=== PATIENT | female | born 1955 | race Caucasian/White ===

== ENCOUNTER 2023-05-20 20:15 | Inpatient (IN) | payer MEDICARE, MEDICAID, SELFPAY ==
[2023-05-20] VITALS (24 sets, daily range): BP systolic 190–210; BP diastolic 96–118; PULSE 100–119; RESP 12–30; O2SAT 93–100; BMI 26.6
--- NOTE | 2023-05-20 20:18 | XR_ITS ---
The [address] [address] Patient Name: LANDY GODFREY MRN: [id number] date: 1955 Sex: F Assigned Patient Location: ED.MAIN Current Patient Location: ED.MAIN Accession/Order Number: [id number] Exam Date: 05/20/2023 20:42 Report Date: 05/20/2023 21:27 At the request of: ALENA CHAPPELL Procedure: XR chest 1V EXAM: XR chest 1V HISTORY: shortness of breath COMPARISON: None. TECHNIQUE: Single view of the chest FINDINGS: Heart size normal. No focal consolidation, pleural effusion, pulmonary congestion or pneumothorax. XR/XR chest 1V IMPRESSION: No acute findings. Electronically authenticated by: DAVID ARMENDARIZ Date: 05/20/2023 21:27
--- NOTE | 2023-05-20 20:18 | ECG_ITS ---
The [facility] Test Date: 2023-05-20 Pat Name: LANDY GODFREY Department: Room: - Gender: Female [employer]ice: : 1955 Requested By: [id number] Order Number: [id number] Reading MD: DARCI RENDON Measurements Intervals [place] Rate: 114 P: 86 IN: 136 QRS: 80 QRSD: 80 T: -11 QT: 312 QTc: 379 Interpretive Statements 1120 Sinus tachycardia [address] depression 4664 Twave abnormality, possible inferior ischemia 6120 Possible right atrial enlargement 9150 abnormal ECG No previous ECG available for comparison Electronically Signed On 05-20-2023 22:33:49 EST by DARCI RENDON
[2023-05-20] MEDS: IPRATROPIUM/ALBUTEROL SULFATE 3 ML AMPUL.NEB 6 ML IH (20:25)
[2023-05-20] MEDS: LORAZEPAM 2 MG/ML 1 ML VIAL 1 MG IV (20:25)
[2023-05-20 20:36] LABS: Base Excess ABG 5.3 mmol/L (-2.0-2.0); HCO3 ABG 31.1 mmol/L (22.0-26.0); pH ABG 7.337 (7.350-7.450)
[2023-05-20 20:37] LABS: Allen Test POSITIVE (POSITIVE); BIPAP Pressure 14/7; Fractionated Inspired Oxygen 70 %; O2 Mode BIPAP; Oxygen Saturation ABG >100.0 %; Puncture Site R RADIAL; Rate 12
[2023-05-20 20:38] LABS: ABG PCO2 58.1 mmHg (35.0-45.0)
[2023-05-20] MEDS: MAGNESIUM SULFATE IN WATER 2 GM/50 ML PREMIX IV (20:38)
--- NOTE | 2023-05-20 20:43 | ED_ITS ---
HPI - SOB/Dyspnea General Chief Complaint: Shortness of Breath/Dyspnea Stated Complaint: copd Time Seen by Provider: 05/20/23 20:18 Source: patient Mode of arrival: ambulance Limitations: no limitations History of Present Illness HPI Narrative: 68-year-old female to the emergency department with chief complaint of shortness of breath. Patient reports a history of chronic obstructive pulmonary disease. She has not seen a doctor in a very long time however. Patient reports that over the last three days she has had increasing shortness of breath. She denies any chest pain. She reports chills and a cough. She denies any lower extremity swelling. She reports a remote history of heart attack. She denies any medications. Related Data Home Medications Medication Instructions Recorded Confirmed No Known Home Medications 05/20/23 05/20/23 Allergies Allergy/AdvReac Type Severity Reaction Status Date / Time Penicillins Allergy Unknown Verified 05/20/23 20:28 Review of Systems ROS Status of ROS 10 or more systems reviewed and unremark able except as noted in history and below [facility] Medical History (Updated 05/21/23 @ 01:17 by Estevan Phoenix MD) COPD (chronic obstructive pulmonary disease) ?J44.9 - Chronic obstructive pulmonary disease, unspecified (ICD-10) Social History Smoking status: Former smoker Exam Narrative Exam Narrative: VITALS: I have reviewed the triage vital signs. GENERAL: Disheveled adult female in Respiratory distress NEURO: Alert and oriented. Moves all extremities. Face is symmetric and expressive. EYES: PERRL. No scleral icterus or conjunctival injection. No discharge. HENT: Normocephalic, atraumatic. Hearing is grossly intact. Nares grossly patent and without discharge. Mucous membranes moist. NECK: No JVD. Patient moves neck without restriction. CARDIO: Rhythm regular. Normal rate. No murmur, rub, or gallop. Pulses equal bilaterally in the upper and lower extremity. No lower extremity edema. PULM: Trace wheezes. Diminished lung sounds. Severe increased work of breathing. Severe conversational dyspnea. GI/: Abdomen is soft and non-tender. Normoactive bowel sounds. EXTREMITIES: Symmetric muscle bulk. No joint swelling. No clubbing, cyanosis, or deformity. SKIN: Warm and dry. Normal turgor. No rash or lesions appreciated. PSYCH: Anxious Constitutional Vital Signs, click to edit/add: Last Vital Signs Pulse 103 H 05/20/23 23:10 Resp 24 05/20/23 21:49 BP 190/96 H 05/20/23 21:49 Pulse Ox 100 05/20/23 23:10 O2 Del Method BIPAP 05/20/23 21:49 O2 Flow Rate 5 05/20/23 20:17 FiO2 70 05/20/23 20:51 Course Vital Signs Vital signs: Vital Signs Pulse Rate 119 H 05/20/23 20:17 Respiratory Rate 20 05/20/23 20:17 Blood Pressure 210/118 H 05/20/23 20:17 Pulse Oximetry 93 L 05/20/23 20:17 Oxygen Delivery Method Nasal Cannula 05/20/23 20:17 Oxygen Delivery Flow Rate 5 05/20/23 20:17 Pulse Rate 103 H 05/20/23 23:10 Respiratory Rate 05/20/23 21:49 Blood Pressure 190/96 H 05/20/23 21:49 Pulse Oximetry 100 05/20/23 23:10 Oxygen Delivery Method BIPAP 05/20/23 21:49 Oxygen Delivery Flow Rate 05/20/23 20:17 Fraction of Inspired Oxygen 70 05/20/23 20:51 MDM - SOB/Dyspnea MDM Narrative Medical decision making narrative: 68-year-old female to the emergency department in significant respiratory distress via EMS. Hypertensive And sick. Otherwise stable vitals. The patient is afebrile.She is immediately placed on BiPAP upon arrival for increased work of breathing. ABG to be obtained. We'll obtain cardiac workup, chest x-ray, blood cultures and lactate. POCUS was performed at the bedside. No significant B lines to suggest pulmonary edema. She received sign Medrol in route. Additional breathing treatments were given. Magnesium is given. Laboratory chest x-ray reviewed. She does have a significant PCO2. EKG without evidence of ischemia, No arrhythmia, normal QTC. Patient remains on BiPAP. Titrated to Fifty percent FiO2. Patient will need admission for acute hypoxemic respiratory failure in setting of chronic obstructive pulmonary disease exacerbation. Patient agrees with this plan. Case discussed with hospitalist who agrees to admit the patient to the [facility]. Medical Records Attestation: I reviewed the patient's medical records. Lab Data Attestation: I reviewed the patient's lab results. Labs: Lab Results 05/20/23 05/20/23 05/20/23 Range/Units 20:22 20:33 20:57 WBC 13.6 H (4.0-11.0) 10^3/uL RBC 4.71 (4.20-5.40) 10^6/uL Hgb 13.6 (12.0-16.0) g/dL Hct 43.4 (36.0-48.0) % MCV 92.1 (81.0-99.0) fL MCH 28.9 (26.7-34.0) pg MCHC 31.3 (29.9-35.2) g/dL RDW 13.5 (11.0-15.0) % Plt Count 308 (150-450) 10^3/uL MPV 11.2 (9.5-13.5) fL Neut % (Auto) 82.4 H (43.0-75.0) % Lymph % (Auto) 12.1 L (20.5-60.0) % [place] % (Auto) 4.4 (1.7-12.0) % Eos % (Auto) 0.4 L (0.9-7.0) % Baso % (Auto) 0.3 (0.2-2.0) % Neut # (Auto) 11.2 H (1.4-6.5) 10^3/uL Lymph # (Auto) 1.6 (1.2-3.8) 10^3/uL [place] # (Auto) 0.6 (0.3-0.8) 10^3/uL Eos # (Auto) 0.1 (0.0-0.7) 10^3/uL Baso # (Auto) 0.0 (0.0-0.1) 10^3/uL Abs Immat Gran (auto) 0.05 H (0.00-0.03) 10^3/uL Imm/Tot Granulo (auto) 0.4 (0.0-0.5) % PT 10.3 (9.0-11.6) sec INR 0.97 APTT 25.9 (22.3-36.2) sec Puncture Site R radial ABG pH 7.337 L (7.350-7.450) ABG pCO2 58.1 H* (35.0-45.0) mmHg ABG pO2 319.0 H (80.0-100.0) mmHg ABG HCO3 31.1 H (22.0-26.0) mmol/L ABG O2 Saturation >100.0 % ABG Base Excess 5.3 H (-2.0-2.0) mmol/L Royal Test Positive (POSITIVE) FiO2 70 % BiPAP 14/7 Sodium 135 L (136-145) mmol/L Potassium 4.4 (3.5-5.1) mmol/L Chloride 100 (98-107) mmol/L Carbon Dioxide 29.7 (21.0-32.0) mmol/L Anion Gap 9.7 BUN 14.0 (7.0-18.0) mg/dL Creatinine 0.76 (0.55-1.02) mg/dL Est GFR ( Amer) >60 (>=60) Est GFR (Non-Af Amer) >60 (>=60) BUN/Creatinine Ratio 18.4 Glucose 148 H (74-106) mg/dL Lactate 0.5 (0.4-2.0) mmol/L Calcium 9.3 (8.5-10.1) mg/dL Troponin I High Sens 37.2 (4.0-51.3) pg/mL NT-Pro-B Natriuret Pep 751.0 (<=900.0) pg/mL Adenovirus (PCR) (NOT DETECTE) C. pneumoniae DNA (PCR) (NOT DETECTE) Coronavirus Type OC43 (NOT DETECTE) Coronavirus Type HKU1 (NOT DETECTE) Coronavirus Type 229E (NOT DETECTE) Coronavirus Type NL63 (NOT DETECTE) Human Metapneumovir PCR (NOT DETECTE) M. pneumoniae (PCR) (NOT DETECTE) Parainfluenza PCR (NOT DETECTE) Parainfluenza 2 (PCR) (NOT DETECTE) Parainfluenza 3 (PCR) (NOT DETECTE) Parainfluenza 4 (PCR) (NOT DETECTE) RSV (RT-PCR) (NOT DETECTE) Entero/Rhino (PCR) (NOT DETECTE) SARS-CoV-2 (PCR) (NOT DETECTE) Bordetella pertussis (PCR) (NOT DETECTE) B parapertussis DNA PCR (NOT DETECTE) Influenza Type A (PCR) (NOT DETECTE) Influenza Type B (PCR) (NOT DETECTE) 05/20/23 Range/Units 22:18 WBC (4.0-11.0) 10^3/uL RBC (4.20-5.40) 10^6/uL Hgb (12.0-16.0) g/dL Hct (36.0-48.0) % MCV (81.0-99.0) fL MCH (26.7-34.0) pg MCHC (29.9-35.2) g/dL RDW (11.0-15.0) % Plt Count (150-450) 10^3/uL MPV (9.5-13.5) fL Neut % (Auto) (43.0-75.0) % Lymph % (Auto) (20.5-60.0) % [place] % (Auto) (1.7-12.0) % Eos % (Auto) (0.9-7.0) % Baso % (Auto) (0.2-2.0) % Neut # (Auto) (1.4-6.5) 10^3/uL Lymph # (Auto) (1.2-3.8) 10^3/uL [place] # (Auto) (0.3-0.8) 10^3/uL Eos # (Auto) (0.0-0.7) 10^3/uL Baso # (Auto) (0.0-0.1) 10^3/uL Abs Immat Gran (auto) (0.00-0.03) 10^3/uL Imm/Tot Granulo (auto) (0.0-0.5) % PT (9.0-11.6) sec INR APTT (22.3-36.2) sec Puncture Site ABG pH (7.350-7.450) ABG pCO2 (35.0-45.0) mmHg ABG pO2 (80.0-100.0) mmHg ABG HCO3 (22.0-26.0) mmol/L ABG O2 Saturation % ABG Base Excess (-2.0-2.0) mmol/L Royal Test (POSITIVE) FiO2 % BiPAP Sodium (136-145) mmol/L Potassium (3.5-5.1) mmol/L Chloride (98-107) mmol/L Carbon Dioxide (21.0-32.0) mmol/L Anion Gap BUN (7.0-18.0) mg/dL Creatinine (0.55-1.02) mg/dL Est GFR ( Amer) (>=60) Est GFR (Non-Af Amer) (>=60) BUN/Creatinine Ratio Glucose (74-106) mg/dL Lactate (0.4-2.0) mmol/L Calcium (8.5-10.1) mg/dL Troponin I High Sens (4.0-51.3) pg/mL NT-Pro-B Natriuret Pep (<=900.0) pg/mL Adenovirus (PCR) Not detected (NOT DETECTE) C. pneumoniae DNA (PCR) Not detected (NOT DETECTE) Coronavirus Type OC43 Not detected (NOT DETECTE) Coronavirus Type HKU1 Not detected (NOT DETECTE) Coronavirus Type 229E Not detected (NOT DETECTE) Coronavirus Type NL63 Not detected (NOT DETECTE) Human Metapneumovir PCR Not detected (NOT DETECTE) M. pneumoniae (PCR) Not detected (NOT DETECTE) Parainfluenza PCR Not detected (NOT DETECTE) Parainfluenza 2 (PCR) Not detected (NOT DETECTE) Parainfluenza 3 (PCR) Not detected (NOT DETECTE) Parainfluenza 4 (PCR) Not detected (NOT DETECTE) RSV (RT-PCR) Not detected (NOT DETECTE) Entero/Rhino (PCR) Not detected (NOT DETECTE) SARS-CoV-2 (PCR) Not detected (NOT DETECTE) Bordetella pertussis (PCR) Not detected (NOT DETECTE) B parapertussis DNA PCR Not detected (NOT DETECTE) Influenza Type A (PCR) Not detected (NOT DETECTE) Influenza Type B (PCR) Not detected (NOT DETECTE) ABG Data Attestation: I personally reviewed and interpreted this ABG as follows: (Respiratory acidosis) ECG Data Attestation: ?I have reviewed the pertinent ECG results. Critical Care Time Critical Care Time Critical Care Time: Yes Total Critical Care Time: 45 Attestation: Critical Care Procedure Note Authorized and Performed by: Estevan Phoenix DO Total critical care time: 45 min Due to a high probability of clinically significant, life threatening deterioration, the patient required my highest level of preparedness to intervene emergently and I personally spent this critical care time directly and personally managing the patient. This critical care time included obtaining a history; examining the patient; pulse oximetry; ordering and review of studies; arranging urgent treatment with development of a management plan; evaluation of patient's response to treatment; frequent reassessment; and, discussions with other providers. This critical care time was performed to assess and manage the high probability of imminent, life-threatening deterioration that could result in multi-organ failure. It was exclusive of separately billable procedures and treating other patients and teaching time. Please see MDM section and the rest of the note for further information on patient assessment and treatment. Discharge Plan Discharge Chief Complaint: Shortness of Breath/Dyspnea Clinical Impression: Acute hypoxemic respiratory failure, Acute exacerbation of chronic obstructive pulmonary disease (COPD) Patient Disposition: Admitted As Inpatient Condition: Serious
--- NOTE | 2023-05-20 20:53 | PC.NURSE ---
Had surgery to right ankle causing chronic swelling
--- NOTE | 2023-05-20 20:53 | RESP.RT ---
fio2 decreased to 50% on bipap
[2023-05-20 21:12] LABS: Basophils Percent Auto 0.3 % (0.2-2.0); Eosinophils Absolute Auto 0.1 10^3/uL (0.0-0.7); Eosinophils Percent Auto 0.4 % (0.9-7.0); Hematocrit 43.4 % (36.0-48.0); Hemoglobin 13.6 g/dL (12.0-16.0); Immature Granulocytes Abs Auto 0.05 10^3/uL (0.00-0.03); Immature Granulocytes Pct Auto 0.4 % (0.0-0.5); Lymphocytes Absolute Auto 1.6 10^3/uL (1.2-3.8); Lymphocytes Percent Auto 12.1 % (20.5-60.0); Mean Corpuscular HGB Conc 31.3 g/dL (29.9-35.2); Mean Corpuscular Hemoglobin 28.9 pg (26.7-34.0); Mean Corpuscular Volume 92.1 fL (81.0-99.0); Mean Platelet Volume 11.2 fL (9.5-13.5); Monocytes Absolute Auto 0.6 10^3/uL (0.3-0.8); Monocytes Percent Auto 4.4 % (1.7-12.0); Neutrophils Absolute Auto 11.2 10^3/uL (1.4-6.5); Neutrophils Percent Auto 82.4 % (43.0-75.0); Platelet Count 308 10^3/uL (150-450); Red Blood Count 4.71 10^6/uL (4.20-5.40); Red Cell Distribution Width 13.5 % (11.0-15.0); White Blood Count 13.6 10^3/uL (4.0-11.0)
[2023-05-20 21:28] LABS: INR 0.97; Partial Thromboplastin Time 25.9 sec (22.3-36.2); Prothrombin Time 10.3 sec (9.0-11.6)
[2023-05-20 21:32] LABS: Lactate/Lactic Acid 0.5 mmol/L (0.4-2.0)
[2023-05-20 21:37] LABS: Anion Gap 9.7; BUN Creatinine Ratio 18.4; Calcium 9.3 mg/dL (8.5-10.1); Carbon Dioxide 29.7 mmol/L (21.0-32.0); Chloride 100 mmol/L (98-107); Estimated GFR (African America >60 (>=60); Estimated GFR (Non-African Ame >60 (>=60); Glucose 148 mg/dL (74-106); Potassium 4.4 mmol/L (3.5-5.1); Sodium 135 mmol/L (136-145); Troponin I High Sensitivity 37.2 pg/mL (4.0-51.3)
[2023-05-20 22:20] LABS: Adenovirus NOT DETECTED (NOT DETECTE); Bordetella parapertussis NOT DETECTED (NOT DETECTE); Coronavirus 229E NOT DETECTED (NOT DETECTE); Coronavirus HKU1 NOT DETECTED (NOT DETECTE); Coronavirus NL63 NOT DETECTED (NOT DETECTE); Coronavirus OC43 NOT DETECTED (NOT DETECTE); Human Metapneumovirus NOT DETECTED (NOT DETECTE); Human Rhinovirus/Enterovirus NOT DETECTED (NOT DETECTE); Influenza A NOT DETECTED (NOT DETECTE); Influenza B NOT DETECTED (NOT DETECTE); Mycoplasma pneumoniae NOT DETECTED (NOT DETECTE); Parainfluenza Virus 1 NOT DETECTED (NOT DETECTE); Parainfluenza Virus 2 NOT DETECTED (NOT DETECTE); Parainfluenza Virus 3 NOT DETECTED (NOT DETECTE); Parainfluenza Virus 4 NOT DETECTED (NOT DETECTE); Respiratory Syncytial Virus NOT DETECTED (NOT DETECTE); SARS-CoV-2 NOT DETECTED (NOT DETECTE)
--- NOTE | 2023-05-20 23:11 | PC.NURSE ---
Pt resting in bed comfortably.
[2023-05-21] VITALS (27 sets, daily range): BP systolic 155–174; BP diastolic 78–101; PULSE 90–116; RESP 12–24; TEMP 36.5–36.7; O2SAT 88–100; BMI 27.5
[2023-05-21] MEDS: IPRATROPIUM/ALBUTEROL SULFATE 3 ML AMPUL.NEB IH ×7 (01:23→23:09)
[2023-05-21] MEDS: DOXYCYCLINE HYCLATE 100 MG in 0.9 % SODIUM CHLORIDE 100 ML IV (01:32)
[2023-05-21] MEDS: PANTOPRAZOLE SODIUM 40 MG VIAL IV (01:33)
[2023-05-21] MEDS: HYDRALAZINE HCL 20 MG/ML VIAL 10 MG IVP (03:34)
[2023-05-21 04:29] LABS: Basophils Percent Auto 0.1 % (0.2-2.0); Hematocrit 42.2 % (36.0-48.0); Hemoglobin 13.2 g/dL (12.0-16.0); Immature Granulocytes Abs Auto 0.05 10^3/uL (0.00-0.03); Immature Granulocytes Pct Auto 0.6 % (0.0-0.5); Lymphocytes Absolute Auto 0.7 10^3/uL (1.2-3.8); Lymphocytes Percent Auto 7.2 % (20.5-60.0); Mean Corpuscular HGB Conc 31.3 g/dL (29.9-35.2); Mean Corpuscular Hemoglobin 28.4 pg (26.7-34.0); Mean Corpuscular Volume 90.9 fL (81.0-99.0); Monocytes Absolute Auto 0.1 10^3/uL (0.3-0.8); Monocytes Percent Auto 0.8 % (1.7-12.0); Neutrophils Absolute Auto 8.2 10^3/uL (1.4-6.5); Neutrophils Percent Auto 91.3 % (43.0-75.0); Platelet Count 311 10^3/uL (150-450); Red Blood Count 4.64 10^6/uL (4.20-5.40); Red Cell Distribution Width 13.6 % (11.0-15.0)
[2023-05-21 04:31] LABS: PCO2 VBG 33.9 mmHg (40.0-52.0); pH VBG 7.506 (7.330-7.430)
[2023-05-21 04:50] LABS: Alanine Aminotransferase 23 U/L (14-59); Albumin Globulin Ratio 0.7; Albumin Level 3.3 g/dL (3.4-5.0); Alkaline Phosphatase 79 U/L (46-116); Anion Gap 8.9; Aspartate Amino Transferase 16 U/L (15-37); BUN Creatinine Ratio 18.1; Bilirubin Total 0.2 mg/dL (0.2-1.0); Calcium 9.2 mg/dL (8.5-10.1); Carbon Dioxide 26.9 mmol/L (21.0-32.0); Chloride 100 mmol/L (98-107); Estimated GFR (African America >60 (>=60); Estimated GFR (Non-African Ame >60 (>=60); Globulin 4.7 g/dL; Glucose 168 mg/dL (74-106); Potassium 3.8 mmol/L (3.5-5.1); Sodium 132 mmol/L (136-145)
[2023-05-21 04:53] LABS: ABG PCO2 47.2 mmHg (35.0-45.0); Allen Test POSITIVE (POSITIVE); Base Excess ABG 2.5 mmol/L (-2.0-2.0); HCO3 ABG 27.7 mmol/L (22.0-26.0); O2 Mode BIPAP; Oxygen Saturation ABG 97.6 %; PO2 ABG 89.5 mmHg (80.0-100.0); pH ABG 7.376 (7.350-7.450)
[2023-05-21 04:54] LABS: BIPAP Pressure 14/7; Fractionated Inspired Oxygen 30 %; Puncture Site R RADIAL; Rate 12
[2023-05-21 05:22] LABS: Bilirubin Urine NEGATIVE (NEGATIVE); Blood Urine NEGATIVE (NEGATIVE); Clarity Urine CLEAR (CLEAR); Color Urine LT. YELLOW (YELLOW); Glucose Urine UA NEGATIVE (NEGATIVE); Ketones Urine 15 mg/dL (NEGATIVE); Leukocyte Esterase Urine NEGATIVE (NEGATIVE); Nitrite Urine POSITIVE (NEGATIVE); Protein Urine TRACE mg/dL (NEG/TRACE); Specific Gravity Urine >=1.030 (1.005-1.025); Urobilinogen Urine 0.2 EU/dL (0.2-1.0); pH Urine 5.5 (5.0-9.0)
[2023-05-21 05:25] LABS: Urine Microscopic Indicated YES
[2023-05-21 05:36] LABS: Bacteria Urine LARGE #/HPF (NONE SEEN); Cast Seen? NONE SEEN #/LPF (NONE SEEN); Crystals Seen? None Seen #/HPF (None Seen); Mucus Urine LARGE (NONE SEEN); RBC Urine 0-2 #/HPF (0-2); Squamous Epithelial Cell Urine RARE #/LPF (NONE/RARE); Urine Culture Indicated YES
[2023-05-21] MEDS: METHYLPREDNISOLONE SOD SUCC PF 125 MG/2 ML VIAL 60 MG IVP ×3 (05:36→17:38)
[2023-05-21] MEDS: LEVOFLOXACIN IN DEXTROSE 5 % 750 MG/150 ML IV.SOLN 100 MG IV (08:12)
--- NOTE | 2023-05-21 11:26 | CT_ITS ---
[address] [address] Patient Name: LANDY GODFREY MRN: [id number] date: 1955 Sex: F Assigned Patient Location: ICU Current Patient Location: ICU Accession/Order Number: [id number] Exam Date: 05/21/2023 11:45 Report Date: 05/21/2023 12:29 At the request of: YANETH ALANIS Procedure: CT angio chest EXAM: CT angio chest HISTORY: SOB COMPARISON: Chest study dated 05/20/2023 TECHNIQUE: CT angiography chest study was performed with the use of intravenous contrast. Multiple axial images were obtained. Reformatted coronal and sagittal images were obtained and reviewed. FINDINGS: No obvious focal filling defects within the pulmonary arteries to suggest emboli. Atherosclerotic calcifications in the thoracic aorta. No evidence of thoracic aortic aneurysm, dissection or leak. Mild coronary artery calcifications are noted. Enhancement of collateral vessels of doubtful acute significance. No evidence of mediastinal, hilar or axillary lymphadenopathy. Visualized thyroid gland appears grossly unremarkable. Generalized COPD. Mild pleural thickening and calcification on the right inferiorly, posteriorly which is nonspecific, correlate for prior asbestos exposure. Mild patchy and linear densities in the right lower lobe posteriorly, inferiorly likely representing atelectatic, fibrotic and/or minimal infiltrative changes. Chest wall appears grossly intact. [id number] degenerative changes in the dorsal spine with mild convexity of the upper dorsal spine to the left. Moderate to marked height loss of the T6 vertebral body most likely chronic. [id number] height loss of T8 and T9 vertebral bodies likely chronic. CT/CT angio chest IMPRESSION: CT angiography chest study fails to demonstrate definite evidence of pulmonary emboli. Collateral vessel enhancement anteriorly of doubtful acute significance. COPD. Mild pleural thickening and pleural calcification on the right posteriorly, inferiorly which is nonspecific, correlate for prior asbestos exposure. Mild atelectatic, fibrotic and/or minimal infiltrative changes in the right lower lung field posteriorly. Electronically authenticated by: JAKE MERCADO Date: 05/21/2023 12:29
--- NOTE | 2023-05-21 11:33 | CM.NOTE ---
Rounds made with Dr. Henry, discussed with pt about CT of chest today. Pt on BIPAP at this time. No discharge today.
--- NOTE | 2023-05-21 13:49 | PM.HP ---
H&P: HPI History of Present Illness Chief complaint: copd EXACERBATIOR Narrative: 68 y/o female with a history of COPD to ER with increased SOB. C/o symptoms for several days and getting worse. Increased SOB with minimal exertion. Chest tight and hard to take deep breath. Frequent dry cough. Afebrile. No LE edema. Developed worsening breathing and called EMS. On arrival noted to be in respiratory distress and placed on BiPAP. BS diminished and given steroids and breathing treatments. Respiratory panel negative. ABG with increased pCO2 and chest x-ray negative. Admitted for treatment. Started antibiotics, steroids, and breathing treatments. Not much improvement overnight and continued SOB on BiPAP. Review of Systems ROS Constitutional Denies: fever, chills or malaise Cardiovascular Denies: chest pain, palpitations or edema Respiratory Reports: shortness of breath, cough and wheezing Gastrointestinal Denies: abdominal pain, nausea, vomiting or diarrhea Genitourinary Denies: painful urination [facility] Medical History (Updated 05/21/23 @ 07:46 by Edgar Henry MD) COPD (chronic obstructive pulmonary disease) ?J44.9 - Chronic obstructive pulmonary disease, unspecified (ICD-10) Social History Smoking status: Former smoker Highest level of school completed/degree received: high school graduate Meds Home Medications and Allergies Home Medications Medication Instructions Recorded Confirmed Type No Known Home Medications 05/20/23 05/20/23 History Allergies Allergy/AdvReac Type Severity Reaction Status Date / Time Penicillins Allergy Unknown Verified 05/20/23 20:28 Exam Constitutional Vital Signs, click to edit/add: Last Vital Signs Temp 97.7 F 05/21/23 07:00 Pulse 106 H 05/21/23 13:00 Resp 20 05/21/23 12:00 BP 164/78 H 05/21/23 07:00 Pulse Ox 93 L 05/21/23 13:00 O2 Del Method Vapotherm 05/21/23 10:19 O2 Flow Rate 30 05/21/23 10:19 FiO2 30 05/21/23 10:19 Documenting provider has reviewed patient's vital signs: yes Common normals: no apparent distress, oriented x3 and alert HENMT Common normals: normocephalic Eye Common normals: PERRL and EOMs intact bilaterally Respiratory Auscultation: wheezes and diminished lung sounds Cardio Common normals: regular rate, regular rhythm, no gallops, no murmurs and no rub GI Common normals: Normal to inspection, nondistended, normoactive bowel sounds present and non-tender Extremity Common normals: no pedal edema Results Labs Labs: Short CBC 05/20/23 05/21/23 Range/Units 20:22 04:08 WBC 13.6 H 9.0 (4.0-11.0) 10^3/uL Hgb 13.6 13.2 (12.0-16.0) g/dL Hct 43.4 42.2 (36.0-48.0) % Plt Count 308 311 (150-450) 10^3/uL BMP 05/20/23 05/21/23 20:22 04:08 Sodium 135 L 132 L Potassium 4.4 3.8 Chloride 100 100 Carbon Dioxide 29.7 26.9 BUN 14.0 13.0 Creatinine 0.76 0.72 Glucose 148 H 168 H Calcium 9.3 9.2 Liver Function 05/21/23 Range/Units 04:08 Total Bilirubin 0.2 (0.2-1.0) mg/dL AST 16 (15-37) U/L ALT 23 (14-59) U/L Alkaline Phosphatase 79 (46-116) U/L Albumin 3.3 L (3.4-5.0) g/dL Urine 05/21/23 Range/Units 04:30 Urine Color Lt. yellow (YELLOW) Urine Clarity Clear (CLEAR) Urine pH 5.5 (5.0-9.0) Ur Specific [place] >=1.030 A (1.005-1.025) Urine Protein Trace (NEG/TRACE) mg/dL Urine Glucose (UA) Negative (NEGATIVE) mg/dL ABG ABG results: 05/20/23 05/21/23 05/21/23 20:33 04:08 04:41 ABG pH 7.337 L 7.376 ABG pCO2 58.1 H* 47.2 H ABG pO2 319.0 H 89.5 ABG HCO3 31.1 H 27.7 H ABG O2 Saturation >100.0 97.6 ABG Base Excess 5.3 H 2.5 H VBG pH 7.506 H VBG pCO2 33.9 L Attestation: I have reviewed the pertinent ABG results. Pulse Oximetry Attestation: I have reviewed the pertinent pulse oximetry results. Imaging Chest x-ray: Attestation: I have reviewed the pertinent imaging results. Assessment and Plan Assessment and Plan (1) Acute exacerbation of chronic obstructive pulmonary disease (COPD): (2) Acute hypoxemic respiratory failure: (3) Acute hypercapnic respiratory failure: (4) UTI (urinary tract infection): Plan Continued symptoms and continue BiPAP. Check CTA chest. UA with possible UTI and add levaquin. Continue steroids and duoneb. Resume home medication. Start PT/OT for weakness. Plan at least a 2 midnight stay for inpatient medically necessary services.
[2023-05-21] MEDS: ACETAMINOPHEN 325 MG TABLET 650 MG PO (16:36)
[2023-05-21] MEDS: ALPRAZOLAM 1 MG TABLET PO (18:08)
[2023-05-22] VITALS (56 sets, daily range): BP systolic 136–164; BP diastolic 67–93; PULSE 72–129; RESP 12–34; TEMP 36.8–37; O2SAT 93–100
[2023-05-22] MEDS: METHYLPREDNISOLONE SOD SUCC PF 125 MG/2 ML VIAL 60 MG IVP ×5 (00:18→23:54)
[2023-05-22] MEDS: ALPRAZOLAM 1 MG TABLET PO ×2 (02:30→18:41)
[2023-05-22] MEDS: IPRATROPIUM/ALBUTEROL SULFATE 3 ML AMPUL.NEB IH ×6 (03:45→23:17)
[2023-05-22 04:50] LABS: Hematocrit 42.9 % (36.0-48.0); Hemoglobin 13.3 g/dL (12.0-16.0); Immature Granulocytes Abs Auto 0.04 10^3/uL (0.00-0.03); Immature Granulocytes Pct Auto 0.3 % (0.0-0.5); Lymphocytes Absolute Auto 0.6 10^3/uL (1.2-3.8); Lymphocytes Percent Auto 5.2 % (20.5-60.0); Mean Corpuscular Hemoglobin 28.3 pg (26.7-34.0); Mean Corpuscular Volume 91.3 fL (81.0-99.0); Monocytes Absolute Auto 0.3 10^3/uL (0.3-0.8); Monocytes Percent Auto 2.1 % (1.7-12.0); Neutrophils Absolute Auto 11.3 10^3/uL (1.4-6.5); Neutrophils Percent Auto 92.4 % (43.0-75.0); Platelet Count 366 10^3/uL (150-450); Red Cell Distribution Width 14.2 % (11.0-15.0); White Blood Count 12.3 10^3/uL (4.0-11.0)
[2023-05-22 04:58] LABS: Anion Gap 7.4; BUN Creatinine Ratio 21.2; Calcium 9.7 mg/dL (8.5-10.1); Carbon Dioxide 33.6 mmol/L (21.0-32.0); Chloride 101 mmol/L (98-107); Estimated GFR (African America >60 (>=60); Estimated GFR (Non-African Ame >60 (>=60); Glucose 150 mg/dL (74-106); Sodium 138 mmol/L (136-145)
[2023-05-22] MEDS: LEVOFLOXACIN IN DEXTROSE 5 % 750 MG/150 ML IV.SOLN 100 MG IV (08:36)
--- NOTE | 2023-05-22 09:32 | PM.PN ---
Progress Note: Subjective Subjective Interval history: 68 y/o female with a history of COPD to ER with increased SOB. C/o symptoms for several days and getting worse. Increased SOB with minimal exertion. Chest tight and hard to take deep breath. Frequent dry cough. Afebrile. No LE edema. Developed worsening breathing and called EMS. On arrival noted to be in respiratory distress and placed on BiPAP. BS diminished and given steroids and breathing treatments. Respiratory panel negative. ABG with increased pCO2 and chest x-ray negative This morning on exam patient appears comfortable on 3 lliters nasal cannula. She reports that she has 3 L of nasal cannula oxygen that she wears at home continuously. She has failed to see a primary care provider in two years. It is difficult for her to get to appointments as she does not have a car. It is also difficult for her to get to the pharmacy and get her medications. 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 She admits to quitting smoking approximately four months ago. She did not require BiPAP this morning but still says she is slightly sore short of breath. No other issues or concerns today. Exam Narrative Exam Narrative: General: Patient is alert, and oriented to person, place and time with normal affect, proper hygiene Skin: no visible rashes, or ulcers Head: atraumatic, acephalic Eyes: PERRLA, no nystagmus present, conjunctiva clear, no scleral icterus Ears: normal gross auditory acuity Heart: Normal rate and rhythm, no murmurs/rubs/gallops Lungs: audible wheezes, no crackles and diminished breath sounds all lung ann Abdomen: Normal audible bowel sounds, no distension, No palpable masses, no organomegaly, no rebound/guarding/ or rigidity Musculoskeletal: no swelling bilateral lower extremities Constitutional Vital Signs, click to edit/add: Last Vital Signs Temp 98.6 F 05/22/23 08:09 Pulse 87 05/22/23 08:09 Resp 20 05/22/23 08:09 BP 164/83 H 05/22/23 08:09 Pulse Ox 93 L 05/22/23 08:09 O2 Del Method Nasal Cannula 05/22/23 08:09 O2 Flow Rate 3 05/22/23 08:09 FiO2 30 05/21/23 15:00 Progress Note: Objective Labs Labs: Short CBC 05/22/23 Range/Units 04:32 WBC 12.3 H (4.0-11.0) 10^3/uL Hgb 13.3 (12.0-16.0) g/dL Hct 42.9 (36.0-48.0) % Plt Count 366 (150-450) 10^3/uL BMP 05/22/23 04:32 Sodium 138 Potassium 4.0 Chloride 101 Carbon Dioxide 33.6 H BUN 18.0 Creatinine 0.85 Glucose 150 H Calcium 9.7 Progress Note: A&P Assessment and Plan (1) Acute exacerbation of chronic obstructive pulmonary disease (COPD): Assessment and Plan: viral panel was negative. Chest x-ray showed no acute cardiopulmonary disease. We'll continue scheduled nebulizers, when necessary albuterol inhaler, IV Solu-Medrol. Oxygen therapy as needed. (2) Acute hypoxemic respiratory failure: Assessment and Plan: secondary to #1 could also be chronic knowing she has home oxygen. (3) Acute hypercapnic respiratory failure: Assessment and Plan: acute on chronic, symptoms improving. (4) UTI (urinary tract infection): Assessment and Plan: due to Escherichia coli. Continue Levaquin. Qualifiers: Urinary tract infection type: acute cystitis Hematuria presence: without hematuria Qualified Code(s): N30.00 - Acute cystitis without hematuria Plan patient is a DNR CCA Continue Lovenox for deep vein thrombosis prophylaxis inpatient status and expected to stay more than two midnights his management consult for home health
--- NOTE | 2023-05-22 19:52 | RESP.RT ---
Placed pt back on BIPAP 06/11 Fi02 30% due to increased work of breathing and pt request after breathing tx.
[2023-05-23] VITALS (46 sets, daily range): BP systolic 136–179; BP diastolic 64–124; PULSE 100–132; RESP 12–108; TEMP 36.5–36.8; O2SAT 92–100
[2023-05-23] MEDS: IPRATROPIUM/ALBUTEROL SULFATE 3 ML AMPUL.NEB IH ×6 (03:39→23:28)
[2023-05-23 05:00] LABS: Basophils Percent Auto 0.1 % (0.2-2.0); Hemoglobin 12.7 g/dL (12.0-16.0); Immature Granulocytes Abs Auto 0.11 10^3/uL (0.00-0.03); Immature Granulocytes Pct Auto 0.7 % (0.0-0.5); Lymphocytes Absolute Auto 0.7 10^3/uL (1.2-3.8); Lymphocytes Percent Auto 4.2 % (20.5-60.0); Mean Corpuscular Hemoglobin 28.7 pg (26.7-34.0); Mean Corpuscular Volume 92.6 fL (81.0-99.0); Mean Platelet Volume 10.4 fL (9.5-13.5); Monocytes Absolute Auto 0.6 10^3/uL (0.3-0.8); Monocytes Percent Auto 3.9 % (1.7-12.0); Neutrophils Absolute Auto 14.7 10^3/uL (1.4-6.5); Neutrophils Percent Auto 91.1 % (43.0-75.0); Platelet Count 391 10^3/uL (150-450); Red Blood Count 4.43 10^6/uL (4.20-5.40); Red Cell Distribution Width 14.6 % (11.0-15.0); White Blood Count 16.1 10^3/uL (4.0-11.0)
[2023-05-23 05:12] LABS: Anion Gap 5.7; Calcium 9.3 mg/dL (8.5-10.1); Carbon Dioxide 31.9 mmol/L (21.0-32.0); Chloride 102 mmol/L (98-107); Estimated GFR (African America >60 (>=60); Estimated GFR (Non-African Ame >60 (>=60); Glucose 134 mg/dL (74-106); Potassium 4.6 mmol/L (3.5-5.1); Sodium 135 mmol/L (136-145)
[2023-05-23] MEDS: METHYLPREDNISOLONE SOD SUCC PF 125 MG/2 ML VIAL 60 MG IVP ×3 (06:47→23:23)
--- NOTE | 2023-05-23 08:19 | PM.PN ---
Progress Note: Subjective Subjective Interval history: This morning on exam patient appears comfortable on 3 lliters nasal cannula. She did require BiPAP this morning but still says she is still short of breath. No other issues or concerns today. She is very concerned about her home oxygen, getting home health services and affording her medication. We discussed that case management will be here tomorrow during rounds and we shall get all things sorted out. Exam Narrative Exam Narrative: General: Patient is alert, and oriented to person, place and time with increase respiratory effort Skin: no visible rashes, or ulcers Head: atraumatic, acephalic Eyes: PERRLA, no nystagmus present, conjunctiva clear, no scleral icterus Ears: normal gross auditory acuity Heart: Normal rate and rhythm, no murmurs/rubs/gallops Lungs: audible wheezes, no crackles and diminished breath sounds all lung ann Abdomen: Normal audible bowel sounds, no distension, No palpable masses, no organomegaly, no rebound/guarding/ or rigidity Musculoskeletal: no swelling bilateral lower extremities Constitutional Vital Signs, click to edit/add: Last Vital Signs Temp 97.7 F 05/23/23 07:45 Pulse 102 H 05/23/23 07:00 Resp 108 H 05/23/23 07:34 BP 152/92 H 05/23/23 07:49 Pulse Ox 96 05/23/23 07:49 O2 Del Method Nasal Cannula 05/23/23 07:45 O2 Flow Rate 3 05/23/23 07:45 FiO2 30 05/22/23 19:56 Progress Note: Objective Labs Labs: Short CBC 05/23/23 Range/Units 03:56 WBC 16.1 H (4.0-11.0) 10^3/uL Hgb 12.7 (12.0-16.0) g/dL Hct 41.0 (36.0-48.0) % Plt Count 391 (150-450) 10^3/uL BMP 05/23/23 03:56 Sodium 135 L Potassium 4.6 Chloride 102 Carbon Dioxide 31.9 BUN 36.0 H Creatinine 0.72 Glucose 134 H Calcium 9.3 Progress Note: A&P Assessment and Plan (1) Acute exacerbation of chronic obstructive pulmonary disease (COPD): Assessment and Plan: viral panel was negative. Chest x-ray showed no acute cardiopulmonary disease. continue scheduled nebulizers, when necessary albuterol inhaler, IV Solu-Medrol. Oxygen therapy as needed, BIPAP; also added pulmicort (2) Acute hypoxemic respiratory failure: Assessment and Plan: secondary to #1 could also be chronic knowing she has home oxygen. (3) Acute hypercapnic respiratory failure: Assessment and Plan: acute on chronic, symptoms improving. (4) UTI (urinary tract infection): Assessment and Plan: due to Escherichia coli. Continue Levaquin. Qualifiers: Hematuria presence: without hematuria Urinary tract infection type: acute cystitis Qualified Code(s): N30.00 - Acute cystitis without hematuria Plan patient is a DNR CCA Continue Lovenox for deep vein thrombosis prophylaxis inpatient status and expected to stay more than two midnights case management consult for home health
[2023-05-23] MEDS: LEVOFLOXACIN IN DEXTROSE 5 % 750 MG/150 ML IV.SOLN 100 MG IV (08:49)
[2023-05-23] MEDS: ALPRAZOLAM 1 MG TABLET PO ×2 (12:23→23:23)
[2023-05-23] MEDS: HYDRALAZINE HCL 20 MG/ML VIAL 10 MG IVP (20:29)
[2023-05-23] MEDS: HYDROXYZINE PAMOATE 25 MG CAPSULE PO (20:30)
[2023-05-23] MEDS: CETIRIZINE HCL 10 MG TABLET PO (21:30)
--- NOTE | 2023-05-23 21:51 | RESP.RT ---
bipap pressures adjusted for patient's comfort. Patient stated it was too much pressure making it hard to breath. Patient is sitting at bedside. When patient lays back down in bed and is more comfortable RT will try to adjust pressure back to previous setting as tolerated by patient.
[2023-05-23] MEDS: BUDESONIDE 0.5 MG/2 ML AMPULE NEB IH (23:29)
[2023-05-24] VITALS (41 sets, daily range): BP systolic 148–189; BP diastolic 60–90; PULSE 96–121; RESP 9–29; TEMP 36.4–36.8; O2SAT 79–100
[2023-05-24] MEDS: IPRATROPIUM/ALBUTEROL SULFATE 3 ML AMPUL.NEB IH ×6 (03:58→23:15)
[2023-05-24 05:41] LABS: Basophils Percent Auto 0.2 % (0.2-2.0); Hematocrit 40.8 % (36.0-48.0); Hemoglobin 12.6 g/dL (12.0-16.0); Immature Granulocytes Abs Auto 0.25 10^3/uL (0.00-0.03); Immature Granulocytes Pct Auto 1.9 % (0.0-0.5); Lymphocytes Absolute Auto 0.7 10^3/uL (1.2-3.8); Lymphocytes Percent Auto 5.1 % (20.5-60.0); Mean Corpuscular HGB Conc 30.9 g/dL (29.9-35.2); Mean Corpuscular Hemoglobin 28.6 pg (26.7-34.0); Mean Corpuscular Volume 92.7 fL (81.0-99.0); Mean Platelet Volume 10.1 fL (9.5-13.5); Monocytes Absolute Auto 0.6 10^3/uL (0.3-0.8); Monocytes Percent Auto 4.4 % (1.7-12.0); Neutrophils Absolute Auto 11.8 10^3/uL (1.4-6.5); Neutrophils Percent Auto 88.4 % (43.0-75.0); Platelet Count 339 10^3/uL (150-450); Red Cell Distribution Width 14.5 % (11.0-15.0); White Blood Count 13.3 10^3/uL (4.0-11.0)
[2023-05-24 05:55] LABS: Anion Gap 1.3; BUN Creatinine Ratio 48.6; Calcium 9.5 mg/dL (8.5-10.1); Carbon Dioxide 33.5 mmol/L (21.0-32.0); Chloride 103 mmol/L (98-107); Estimated GFR (African America >60 (>=60); Estimated GFR (Non-African Ame >60 (>=60); Glucose 126 mg/dL (74-106); Potassium 4.8 mmol/L (3.5-5.1); Sodium 133 mmol/L (136-145)
[2023-05-24] MEDS: METHYLPREDNISOLONE SOD SUCC PF 125 MG/2 ML VIAL 60 MG IVP ×3 (06:07→18:13)
--- NOTE | 2023-05-24 08:23 | PM.PN ---
Progress Note: Subjective Subjective Interval history: Patient reports slight improvement. Still short of breath with talking and increased anxiety. Says the Vistaril is helping. She slept last night. Denies fevers, chills. n/v/d Exam Narrative Exam Narrative: General: Patient is alert, and oriented to person, place and time with increase respiratory effort Skin: no visible rashes, or ulcers Head: atraumatic, acephalic Eyes: PERRLA, no nystagmus present, conjunctiva clear, no scleral icterus Ears: normal gross auditory acuity Heart: Normal rate and rhythm, no murmurs/rubs/gallops Lungs: audible wheezes, no crackles and diminished breath sounds all lung ann Abdomen: Normal audible bowel sounds, no distension, No palpable masses, no organomegaly, no rebound/guarding/ or rigidity Musculoskeletal: no swelling bilateral lower extremities Constitutional Vital Signs, click to edit/add: Last Vital Signs Temp 98.1 F 05/24/23 04:00 Pulse 96 H 05/24/23 07:51 Resp 20 05/24/23 04:00 BP 148/60 H 05/24/23 04:00 Pulse Ox 95 05/24/23 07:51 O2 Del Method Nasal Cannula 05/24/23 07:51 O2 Flow Rate 2 05/24/23 07:51 FiO2 30 05/23/23 23:34 Progress Note: Objective Labs Labs: Short CBC 05/24/23 Range/Units 05:24 WBC 13.3 H (4.0-11.0) 10^3/uL Hgb 12.6 (12.0-16.0) g/dL Hct 40.8 (36.0-48.0) % Plt Count 339 (150-450) 10^3/uL BMP 05/24/23 05:24 Sodium 133 L Potassium 4.8 Chloride 103 Carbon Dioxide 33.5 H BUN 34.0 H Creatinine 0.70 Glucose 126 H Calcium 9.5 Progress Note: A&P Assessment and Plan (1) Acute exacerbation of chronic obstructive pulmonary disease (COPD): Assessment and Plan: continue scheduled nebulizers, when necessary albuterol inhaler, IV Solu-Medrol. Oxygen therapy as needed, BIPAP; pulmicort (2) Acute hypoxemic respiratory failure: Assessment and Plan: secondary to #1 could also be chronic knowing she has home oxygen. she needs home oxygen of 3 L NC to maintain oxygen saturations of >90% for her Severe COPD. (3) Acute hypercapnic respiratory failure: Assessment and Plan: resolved (4) UTI (urinary tract infection): Assessment and Plan: due to Escherichia coli. Continue Levaquin. Qualifiers: Hematuria presence: without hematuria Urinary tract infection type: acute cystitis Qualified Code(s): N30.00 - Acute cystitis without hematuria (5) Anxiety: Assessment and Plan: increase vistaril PRN. Plan patient is a DNR CCA Continue Lovenox for deep vein thrombosis prophylaxis Getting home oxygen and home health set up, given list of PCP's.
[2023-05-24] MEDS: CETIRIZINE HCL 10 MG TABLET PO (08:38)
[2023-05-24] MEDS: HYDROXYZINE PAMOATE 25 MG CAPSULE PO ×2 (08:39→15:53)
[2023-05-24] MEDS: LEVOFLOXACIN IN DEXTROSE 5 % 750 MG/150 ML IV.SOLN 100 MG IV (08:39)
--- NOTE | 2023-05-24 09:43 | SWNOTE1 ---
Message received from case management and pt has home oxygen from [facility]. Pt is agreeable for HH and is going to let physical therapy come do evaluation.
--- NOTE | 2023-05-24 10:42 | CM.NOTE ---
Rounds made with Dr. Cooper, PT to evaluate pt today. Pt also has home oxygen with [facility].
[2023-05-24] MEDS: BUDESONIDE 0.5 MG/2 ML AMPULE NEB IH ×2 (11:15→23:15)
--- NOTE | 2023-05-24 12:03 | CM.NOTE ---
Talked with pt regarding discharge planning, Pt is in agreement only for HH services, pt refuses to go skilled anywhere at discharge. Pt given 5 star Medicare.gov rating for HH companies. Pt would like to go with [facility]. Discussed also with pt about f/u with primary care doctor. Pt does not have a primary care doctor, talked with pt about accepting physicians. Pt refuses to go to office to see a doctor, she states it is too hard for her to get out and also find transport. Talked with pt about telehealth visits. Pt states she does not have a way to do that. Discussed with pt about using her smart phone, pt still refuses. Pt has home oxygen with [facility] but was going to lose that service also d/t refusal to f/u with primary care doctor. Talked with pt about [employer] for transportation. Pt again states its too hard for me to get in and out of my apartment.
--- NOTE | 2023-05-24 13:40 | SWNOTE1 ---
KAREN spoke with [facility] and pt got her oxygen back in 2018 and every 5 years they need to re-certify the oxygen. In order to do this while pt is here we will need walk test, script , and documentation. KAREN notified [facility] for walk test and doctor for script and documentation. Referral sent to [facility] for HH.
--- NOTE | 2023-05-24 15:42 | SWNOTE1 ---
SW sent updates to [facility] to recert pt. SW also spoke pt in regards to discharge planning. Pt is happy with [facility] and thankful we can re-cert her here at hospital. Pt's friend mentioned to pt a service that can help with cleaning at home. Pt asked about passport. SW provided information, qualifications, and numbers for pt to reach out to passport. Pt thankful and will call passport. Pt asked about HH, SW let her know we are waiting to hear back from [address] SW did receive a call from [facility] and they are able to accept.
[2023-05-24] MEDS: ALPRAZOLAM 1 MG TABLET PO (19:44)
--- NOTE | 2023-05-24 21:14 | PC.NURSE ---
Patient notes that she feels like I can't catch my breath. Reassurance given. BP elevated at this time with patient's current level of anxiety. Patient notes she will take a PRN Xanax.
--- NOTE | 2023-05-24 21:17 | PC.NURSE ---
Patient resting back in bed at this time. Notably drowsy but arousable to verbal stimuli. Patient states she continues to feel a little SOB. BP notably lower than previous at this time. Patient denies current needs.
[2023-05-25] VITALS (25 sets, daily range): BP systolic 155–179; BP diastolic 79–99; PULSE 97–120; RESP 12–24; TEMP 36.4–36.9; O2SAT 91–99
[2023-05-25] MEDS: HYDROXYZINE PAMOATE 25 MG CAPSULE PO ×4 (00:22→22:03)
[2023-05-25] MEDS: METHYLPREDNISOLONE SOD SUCC PF 125 MG/2 ML VIAL 60 MG IVP ×5 (00:55→23:38)
[2023-05-25] MEDS: IPRATROPIUM/ALBUTEROL SULFATE 3 ML AMPUL.NEB IH ×6 (03:04→23:25)
[2023-05-25 04:34] LABS: Basophils Percent Auto 0.4 % (0.2-2.0); Hematocrit 42.6 % (36.0-48.0); Immature Granulocytes Abs Auto 0.52 10^3/uL (0.00-0.03); Immature Granulocytes Pct Auto 4.8 % (0.0-0.5); Lymphocytes Absolute Auto 0.6 10^3/uL (1.2-3.8); Mean Corpuscular HGB Conc 30.5 g/dL (29.9-35.2); Mean Corpuscular Hemoglobin 28.6 pg (26.7-34.0); Mean Corpuscular Volume 93.6 fL (81.0-99.0); Monocytes Absolute Auto 0.3 10^3/uL (0.3-0.8); Monocytes Percent Auto 3.2 % (1.7-12.0); Neutrophils Absolute Auto 9.2 10^3/uL (1.4-6.5); Neutrophils Percent Auto 85.6 % (43.0-75.0); Platelet Count 328 10^3/uL (150-450); Red Blood Count 4.55 10^6/uL (4.20-5.40); Red Cell Distribution Width 14.6 % (11.0-15.0); White Blood Count 10.7 10^3/uL (4.0-11.0)
[2023-05-25 04:43] LABS: Anion Gap 10.5; BUN Creatinine Ratio 42.7; Calcium 9.2 mg/dL (8.5-10.1); Carbon Dioxide 29.4 mmol/L (21.0-32.0); Chloride 103 mmol/L (98-107); Estimated GFR (African America >60 (>=60); Estimated GFR (Non-African Ame >60 (>=60); Glucose 135 mg/dL (74-106); Potassium 4.9 mmol/L (3.5-5.1); Sodium 138 mmol/L (136-145)
[2023-05-25] MEDS: LEVOFLOXACIN IN DEXTROSE 5 % 750 MG/150 ML IV.SOLN 100 MG IV (08:12)
[2023-05-25] MEDS: CETIRIZINE HCL 10 MG TABLET PO (08:17)
--- NOTE | 2023-05-25 08:44 | XR_ITS ---
The [address] [address] Patient Name: LANDY GODFREY MRN: [id number] date: 1955 Sex: F Assigned Patient Location: ICU Current Patient Location: ICU Accession/Order Number: [id number] Exam Date: 05/25/2023 08:50 Report Date: 05/25/2023 09:18 At the request of: ALMAS DIAZ Procedure: XR chest 1V EXAMINATION: XR chest 1V HISTORY: shortness of breath COMPARISON: XR chest 05/20/2023 FINDINGS: LUNGS: Mild haziness and stranding within lung bases slightly obscuring the bronchovascular markings. Hyperexpanded lungs. VASCULATURE: No increased pulmonary vasculature. PLEURA: No pneumothorax, effusion, or pleural thickening. CARDIAC: No cardiomegaly or cardiac silhouette abnormality. MEDIASTINUM: No visible mass or adenopathy. BONES: No fracture or visible bone lesion. OTHER: Negative. XR/XR chest 1V IMPRESSION: 1. Suspect mild bibasilar infiltrates, right greater than left overlying chronic emphysematous changes. Electronically authenticated by: MARKY DAMON Date: 05/25/2023 09:18
[2023-05-25] MEDS: BUDESONIDE 0.5 MG/2 ML AMPULE NEB IH ×2 (11:26→23:25)
[2023-05-25] MEDS: CARVEDILOL 3.125 MG TABLET PO ×2 (12:01→22:03)
[2023-05-25] MEDS: ALPRAZOLAM 1 MG TABLET PO ×2 (12:08→20:02)
--- NOTE | 2023-05-25 12:33 | CM.NOTE ---
Rounds made with Dr. Cooper, no discharge today. Pt will have HH services at discharge and passport.
--- NOTE | 2023-05-25 13:53 | PM.PN ---
Progress Note: Subjective Subjective Interval history: Patient reports slight improvement. Still short of breath with talking and increased anxiety. Denies fevers, chills. n/v/d. Asks the same questions each day about her inhalers. oxygen and home health. Keep reassuring her all is taken care of. Exam Narrative Exam Narrative: General: Patient is alert, and oriented to person, place and time with increase respiratory effort Skin: no visible rashes, or ulcers Head: atraumatic, acephalic Eyes: PERRLA, no nystagmus present, conjunctiva clear, no scleral icterus Ears: normal gross auditory acuity Heart: Normal rate and rhythm, no murmurs/rubs/gallops Lungs: audible wheezes, no crackles and diminished but improving breath sounds all lung ann Abdomen: Normal audible bowel sounds, no distension, No palpable masses, no organomegaly, no rebound/guarding/ or rigidity Musculoskeletal: no swelling bilateral lower extremities Constitutional Vital Signs, click to edit/add: Last Vital Signs Temp 98.0 F 05/25/23 03:51 Pulse 119 H 05/25/23 11:31 Resp 20 05/25/23 11:00 BP 165/98 H 05/25/23 11:00 Pulse Ox 94 L 05/25/23 11:31 O2 Del Method Nasal Cannula 05/25/23 11:31 O2 Flow Rate 3 05/25/23 11:31 FiO2 30 05/23/23 23:34 Progress Note: Objective Labs Labs: Short CBC 05/25/23 Range/Units 04:07 WBC 10.7 (4.0-11.0) 10^3/uL Hgb 13.0 (12.0-16.0) g/dL Hct 42.6 (36.0-48.0) % Plt Count 328 (150-450) 10^3/uL BMP 05/25/23 04:07 Sodium 138 Potassium 4.9 Chloride 103 Carbon Dioxide 29.4 BUN 32.0 H Creatinine 0.75 Glucose 135 H Calcium 9.2 Progress Note: A&P Assessment and Plan (1) Acute exacerbation of chronic obstructive pulmonary disease (COPD): Assessment and Plan: continue scheduled nebulizers, when necessary albuterol inhaler, IV Solu-Medrol. Oxygen therapy as needed, BIPAP; pulmicort (2) Acute hypoxemic respiratory failure: Assessment and Plan: she needs home oxygen of 3 L NC to maintain oxygen saturations of >90% for her Severe COPD. (3) UTI (urinary tract infection): Assessment and Plan: due to Escherichia coli. Continue Levaquin. Qualifiers: Urinary tract infection type: acute cystitis Hematuria presence: without hematuria Qualified Code(s): N30.00 - Acute cystitis without hematuria (4) Anxiety: Assessment and Plan: continue vistaril PRN and xanax. (5) Elevated blood pressure reading: Assessment and Plan: will add coreg 3.125mg BID today Plan patient is a DNR CCA Continue Lovenox for deep vein thrombosis prophylaxis hopeful discharge home tomorrow
--- NOTE | 2023-05-25 15:35 | CM.NOTE ---
Important Message From Medicare discussed with pt, pt verbalizes understanding and signs paper. Original given to pt and copy placed on pt's chart.
--- NOTE | 2023-05-25 15:55 | RESP.RT ---
placed on BiPAP
[2023-05-26] VITALS (20 sets, daily range): BP systolic 139–158; BP diastolic 69–84; PULSE 88–120; RESP 18–24; TEMP 36.6–36.7; O2SAT 93–97
[2023-05-26] MEDS: IPRATROPIUM/ALBUTEROL SULFATE 3 ML AMPUL.NEB IH ×4 (03:57→18:45)
[2023-05-26 05:23] LABS: Hematocrit 40.6 % (36.0-48.0); Hemoglobin 12.4 g/dL (12.0-16.0); Mean Corpuscular HGB Conc 30.5 g/dL (29.9-35.2); Mean Corpuscular Hemoglobin 28.4 pg (26.7-34.0); Mean Corpuscular Volume 93.1 fL (81.0-99.0); Mean Platelet Volume 9.9 fL (9.5-13.5); Platelet Count 329 10^3/uL (150-450); Red Blood Count 4.36 10^6/uL (4.20-5.40); Red Cell Distribution Width 14.5 % (11.0-15.0); White Blood Count 10.7 10^3/uL (4.0-11.0)
[2023-05-26 05:32] LABS: Anion Gap 4.9; Calcium 8.8 mg/dL (8.5-10.1); Chloride 103 mmol/L (98-107); Estimated GFR (African America >60 (>=60); Estimated GFR (Non-African Ame >60 (>=60); Glucose 121 mg/dL (74-106); Potassium 4.9 mmol/L (3.5-5.1); Sodium 139 mmol/L (136-145)
[2023-05-26] MEDS: METHYLPREDNISOLONE SOD SUCC PF 125 MG/2 ML VIAL 60 MG IVP ×4 (05:42→23:57)
[2023-05-26 05:46] LABS: Atypical Lymphocytes Abs Man 0.64; Lymphocytes Absolute Manual 0.21 10^3/uL (1.20-3.80); Monocytes Absolute Manual 0.42 10^3/uL (0.30-0.80); Segmented Neut Absolute Manual 9.41 10^3/uL (1.4-6.5)
[2023-05-26] MEDS: ALPRAZOLAM 1 MG TABLET PO (08:12)
[2023-05-26] MEDS: CETIRIZINE HCL 10 MG TABLET PO (08:12)
[2023-05-26] MEDS: CARVEDILOL 3.125 MG TABLET PO ×2 (08:12→21:05)
[2023-05-26] MEDS: LEVOFLOXACIN IN DEXTROSE 5 % 750 MG/150 ML IV.SOLN 100 MG IV (08:12)
[2023-05-26] MEDS: BUDESONIDE 0.5 MG/2 ML AMPULE NEB IH (11:09)
--- NOTE | 2023-05-26 11:10 | REH.PTDLY ---
Physical Therapy Daily Note PT Daily Note/Assess Start: 05/25/23 13:17 Freq: Status: Active Protocol: Document 05/26/23 11:08 TRAN ([facility]26[facility]23 11[facility]10 [id number] Visit Not Completed Visit Not Completed Due to: Pt level of alertness,Pt refusing Other Reason Visit Not Completed Attempted to see pt 2x today, in bed sleeping each time. Woke pt and asked to participate in therapy. Pt mumbles and is hard to understand with cues for pt to repeat. States she's too tired, and to come back later. Explained to pt that this was later as she declined earlier in the morning. Pt continues to decline therapy today. Physical Therapy Daily Note/Assessment Time In 11:00 Time Out 11:05
--- NOTE | 2023-05-26 12:10 | XR_ITS ---
The [address] [address] Patient Name: LANDY GODFREY MRN: [id number] date: 1955 Sex: F Assigned Patient Location: [place] Current Patient Location: [place] Accession/Order Number: [id number] Exam Date: 05/26/2023 13:05 Report Date: 05/26/2023 15:07 At the request of: ALMAS DIAZ Procedure: XR chest 1V EXAM: XR chest 1V HISTORY: Shortness of breath COMPARISON: 05/25/2023 TECHNIQUE: AP erect FINDINGS: LUNGS: New mild right basilar infiltrate. Stable emphysema VASCULATURE: No increased pulmonary vasculature. PLEURA: No pneumothorax, effusion, or pleural thickening. CARDIAC: No cardiomegaly or cardiac silhouette abnormality. MEDIASTINUM: No visible mass or adenopathy. BONES: No fracture or visible bone lesion. OTHER: Negative. XR/XR chest 1V IMPRESSION: Mild right basilar infiltrate Electronically authenticated by: MAGDALENA SAMUELS Date: 05/26/2023 15:07
--- NOTE | 2023-05-26 13:33 | CM.NOTE ---
Rounds made with Dr. Cooper, pt voices increased shortness of breath today. Dr. Cooper will order another chest x-ray for today. PT will continue to work with pt.
--- NOTE | 2023-05-26 14:45 | P.PN_ITS ---
Progress Note: Subjective Subjective Interval history: Patient is feeling very down today, reports increased anxiety about returning home but is adamant she is not going to [place] [facility]. She still remains on 3L NC. She admits that in her house prior to admission she had alot of difficulty getting to the sink and back. Her exercise tolerance is pretty low and she has not wanted Physical therapy input much during her stay. She also has not been on medications for quite awhile. She denies trying anything before for anxiety and panic/depression but she is willing to try something. She denies and fevers or chills. Good appetite. Exam Narrative Exam Narrative: General: Patient is alert, and oriented to person, place and time with slight dyspnea Skin: no visible rashes, or ulcers Head: atraumatic, acephalic Eyes: PERRLA, no nystagmus present, conjunctiva clear, no scleral icterus Ears: normal gross auditory acuity Heart: Normal rate and rhythm, no murmurs/rubs/gallops Lungs: audible wheezes, no crackles and diminished but improving breath sounds all lung ann Abdomen: Normal audible bowel sounds, no distension, No palpable masses, no organomegaly, no rebound/guarding/ or rigidity Musculoskeletal: no swelling bilateral lower extremities Constitutional Vital Signs, click to edit/add: Last Vital Signs Temp 98.0 F 05/26/23 14:24 Pulse 108 H 05/26/23 14:24 Resp 18 05/26/23 06:55 BP 139/69 05/26/23 14:24 Pulse Ox 93 L 05/26/23 14:24 O2 Del Method Nasal Cannula 05/26/23 14:24 O2 Flow Rate 3 05/26/23 14:24 FiO2 35 05/25/23 15:55 Progress Note: Objective Labs Labs: Short CBC 05/26/23 Range/Units 05:02 WBC 10.7 (4.0-11.0) 10^3/uL Hgb 12.4 (12.0-16.0) g/dL Hct 40.6 (36.0-48.0) % Plt Count 329 (150-450) 10^3/uL BMP 05/26/23 05:02 Sodium 139 Potassium 4.9 Chloride 103 Carbon Dioxide 36.0 H BUN 32.0 H Creatinine 0.64 Glucose 121 H Calcium 8.8 Progress Note: A&P Assessment and Plan (1) Acute exacerbation of chronic obstructive pulmonary disease (COPD): Assessment and Plan: continue scheduled nebulizers, when necessary albuterol inhaler, IV Solu-Medrol. Oxygen therapy as needed, BIPAP; pulmicort, will start PO Prednisone tomorrow. She may be at her baseline. Will need spiriva, albuterol and inhaled steroid at discharge. She also needs PCP and pulmonary doctor. (2) Acute hypoxemic respiratory failure: Assessment and Plan: she needs home oxygen of 3 L NC to maintain oxygen saturations of >90% for her Severe COPD. This is now chronic. (3) UTI (urinary tract infection): Assessment and Plan: due to Escherichia coli. Continue Levaquin. Qualifiers: Urinary tract infection type: acute cystitis Hematuria presence: without hematuria Qualified Code(s): N30.00 - Acute cystitis without hematuria (4) Anxiety: Assessment and Plan: continue vistaril PRN and xanax PRN but i decreased dosage of xanax. I added zoloft 25mg daily. (5) Elevated blood pressure reading: Assessment and Plan: continue coreg. Plan patient is a DNR CCA Continue Lovenox for deep vein thrombosis prophylaxis
[2023-05-26 15:31] LABS: Adenovirus NOT DETECTED (NOT DETECTE); Bordetella parapertussis NOT DETECTED (NOT DETECTE); Coronavirus 229E NOT DETECTED (NOT DETECTE); Coronavirus HKU1 NOT DETECTED (NOT DETECTE); Coronavirus NL63 NOT DETECTED (NOT DETECTE); Coronavirus OC43 NOT DETECTED (NOT DETECTE); Human Metapneumovirus NOT DETECTED (NOT DETECTE); Human Rhinovirus/Enterovirus NOT DETECTED (NOT DETECTE); Influenza A NOT DETECTED (NOT DETECTE); Influenza B NOT DETECTED (NOT DETECTE); Mycoplasma pneumoniae NOT DETECTED (NOT DETECTE); Parainfluenza Virus 1 NOT DETECTED (NOT DETECTE); Parainfluenza Virus 2 NOT DETECTED (NOT DETECTE); Parainfluenza Virus 3 NOT DETECTED (NOT DETECTE); Parainfluenza Virus 4 NOT DETECTED (NOT DETECTE); Respiratory Syncytial Virus NOT DETECTED (NOT DETECTE); SARS-CoV-2 NOT DETECTED (NOT DETECTE)
[2023-05-26] MEDS: HYDROXYZINE PAMOATE 25 MG CAPSULE PO (18:41)
[2023-05-26] MEDS: ALPRAZOLAM 1 MG TABLET 0.5 MG PO (21:05)
[2023-05-26] MEDS: PANTOPRAZOLE SODIUM 40 MG VIAL IV (21:05)
--- NOTE | 2023-05-26 23:54 | RESP.RT ---
No breathing tx given. Pt refused. Pt stated they make her feel more SOB after she takes them.
[2023-05-27] VITALS (17 sets, daily range): BP systolic 157–164; BP diastolic 72–83; PULSE 81–122; RESP 18–20; TEMP 36.4–36.6; O2SAT 95–98
--- NOTE | 2023-05-27 03:37 | RESP.RT ---
No breathing tx given. Pt refused. Pt stated they make her feel bad.
[2023-05-27] MEDS: METHYLPREDNISOLONE SOD SUCC PF 125 MG/2 ML VIAL 60 MG IVP ×3 (05:17→18:32)
[2023-05-27 05:34] LABS: Basophils Absolute Auto 0.1 10^3/uL (0.0-0.1); Basophils Percent Auto 0.5 % (0.2-2.0); Hematocrit 46.6 % (36.0-48.0); Immature Granulocytes Abs Auto 0.66 10^3/uL (0.00-0.03); Immature Granulocytes Pct Auto 5.1 % (0.0-0.5); Lymphocytes Absolute Auto 0.8 10^3/uL (1.2-3.8); Lymphocytes Percent Auto 6.3 % (20.5-60.0); Mean Corpuscular Hemoglobin 27.9 pg (26.7-34.0); Mean Corpuscular Volume 92.8 fL (81.0-99.0); Mean Platelet Volume 9.9 fL (9.5-13.5); Monocytes Absolute Auto 0.5 10^3/uL (0.3-0.8); Neutrophils Absolute Auto 10.9 10^3/uL (1.4-6.5); Neutrophils Percent Auto 84.1 % (43.0-75.0); Platelet Count 395 10^3/uL (150-450); Red Blood Count 5.02 10^6/uL (4.20-5.40); Red Cell Distribution Width 14.5 % (11.0-15.0); White Blood Count 12.9 10^3/uL (4.0-11.0)
[2023-05-27 05:51] LABS: Anion Gap 5.1; BUN Creatinine Ratio 43.1; Calcium 9.1 mg/dL (8.5-10.1); Carbon Dioxide 39.1 mmol/L (21.0-32.0); Chloride 101 mmol/L (98-107); Estimated GFR (African America >60 (>=60); Estimated GFR (Non-African Ame >60 (>=60); Glucose 126 mg/dL (74-106); Potassium 5.2 mmol/L (3.5-5.1); Sodium 140 mmol/L (136-145)
[2023-05-27] MEDS: LEVOFLOXACIN IN DEXTROSE 5 % 750 MG/150 ML IV.SOLN 100 MG IV (08:48)
[2023-05-27] MEDS: 0.9 % SODIUM CHLORIDE 250 ML 10 ML IV (08:48)
[2023-05-27] MEDS: HYDROXYZINE PAMOATE 25 MG CAPSULE PO (08:49)
[2023-05-27] MEDS: CARVEDILOL 3.125 MG TABLET PO ×2 (08:49→21:29)
[2023-05-27] MEDS: SERTRALINE HCL 50 MG TABLET 25 MG PO (08:49)
[2023-05-27] MEDS: CETIRIZINE HCL 10 MG TABLET PO (08:49)
--- NOTE | 2023-05-27 09:16 | SWNOTE1 ---
KAREN did speak with Julee from [facility] yesterday, they came to see pt at hospital. SW to update [facility] today in regards to discharge.
--- NOTE | 2023-05-27 09:17 | P.PN_ITS ---
Progress Note: Subjective Subjective Interval history: Patient is having a good day. She would like to go home tomorrow once she has a ride. She has had improved shortness of breath, still with some anxiety. She also requests a B12 shot for energy. She denies and fevers or chills. Good appetite. still very adamant about not going to rehab facility or shelter, she said she would rather . patient has also been taking her own aspirin and using a inhaler she bought off [employer] that was hidden in her coat pocket. Exam Narrative Exam Narrative: General: Patient is alert, and oriented to person, place and time Skin: no visible rashes, or ulcers Head: atraumatic, acephalic Eyes: PERRLA, no nystagmus present, conjunctiva clear, no scleral icterus Ears: normal gross auditory acuity Heart: Normal rate and rhythm, no murmurs/rubs/gallops Lungs: audible wheezes, no crackles and diminished but improving breath sounds all lung ann Abdomen: Normal audible bowel sounds, no distension, No palpable masses, no organomegaly, no rebound/guarding/ or rigidity Musculoskeletal: no swelling bilateral lower extremities Constitutional Vital Signs, click to edit/add: Last Vital Signs Temp 97.9 F 05/27/23 04:39 Pulse 91 H 05/27/23 07:58 Resp 18 05/27/23 04:39 BP 157/80 H 05/27/23 04:39 Pulse Ox 96 05/27/23 04:39 O2 Del Method Nasal Cannula 05/27/23 04:39 O2 Flow Rate 3 05/27/23 04:39 FiO2 35 05/25/23 15:55 Progress Note: Objective Labs Labs: Short CBC 05/27/23 Range/Units 05:13 WBC 12.9 H (4.0-11.0) 10^3/uL Hgb 14.0 (12.0-16.0) g/dL Hct 46.6 (36.0-48.0) % Plt Count 395 (150-450) 10^3/uL BMP 05/27/23 05:13 Sodium 140 Potassium 5.2 H Chloride 101 Carbon Dioxide 39.1 H BUN 31.0 H Creatinine 0.72 Glucose 126 H Calcium 9.1 Progress Note: A&P Assessment and Plan (1) Acute exacerbation of chronic obstructive pulmonary disease (COPD): Assessment and Plan: continue scheduled nebulizers, when necessary albuterol inhaler, IV Solu-Medrol. Oxygen therapy as needed, BIPAP; pulmicort . She may be at her new baseline. Will need spiriva, albuterol and inhaled steroid at discharge. She also needs PCP and pulmonary doctor. (2) Acute hypoxemic respiratory failure: Assessment and Plan: acute on chronic. she needs home oxygen of 3 L NC to maintain oxygen saturations of >90% for her Severe COPD. This is now chronic. (3) UTI (urinary tract infection): Assessment and Plan: due to Escherichia coli. stop Levaquin has been 7 days. Qualifiers: Hematuria presence: without hematuria Urinary tract infection type: acute cystitis Qualified Code(s): N30.00 - Acute cystitis without hematuria (4) Anxiety: Assessment and Plan: continue vistaril PRN and xanax PRN but i decreased dosage of xanax. I added zoloft 25mg daily. (5) Elevated blood pressure reading: Assessment and Plan: continue coreg. Plan patient is a DNR CCA Continue Lovenox for deep vein thrombosis prophylaxis
--- NOTE | 2023-05-27 10:51 | PT.DAILY ---
Physical Therapy Daily Note PT Daily Note/Assess Start: 05/25/23 13:17 Freq: Status: Active Protocol: Document 05/27/23 10:00 HAYLIE (Rec: 05/27/23 10:50 HAYLIE [id number]) Physical Therapy Daily Note/Assessment Time In/Time Out Time In 09:57 Time Out 10:20 Subjective Subjective I want to get up and walk, but I have no stamina. I can't breath. I am going home tomorrow, I just need enough energy to get into my apartment then I will be fine. Willing to participate. Therapeutic Exercise Time Therapeutic Exercise Minutes (minutes) 10 Therapeutic Exercise Units 1 Therapeutic Exercise Treatment Therapeutic Exercise Treatment Standing exercises at RW as followed 5-10 reps with seated rest breaks; Marches, TR/HR, Fwd/retro stepping, Side/side stepping. Therapeutic Activity Treatment Chair Transfer Ability Standby Assistance Therapeutic Activity Comments Sit to stand 5x from EOB SBA ( Patient would not let therapist touch her, but did okay). Gait 20 ft. x 2 with standing rest break. Cues for breathing. Patient on 3 LO2 and SPO2 90-92 percent. Severe SOB with activity. Total Physical Therapy Time Total Therapy Minutes 10 Total Physical Therapy Units 1 Summary Daily Note Summary Patient demonstrates good strength and balance, but severely limited by SOB with activity. Patient works hard with RX today and is determined to build up stamina required to go home. Will keep working with patient and progressing tolerance to gait distance and exercises while in acute stay.
--- NOTE | 2023-05-27 11:16 | SWNOTE1 ---
SW stopped in to see pt. Pt was sitting up on edge of bed. She voiced she is still tired, but feeling a little better. Pt voiced she was hoping to stay until Wednesday so she can build her strength up. SW voiced to pt that she has refused therapy several times and she needs to work with therapy. Pt voiced she did this morning. SW let pt know that she will need to have a medical reason to stay here at hospital. SW recommended that pt go to a SNF for rehab if she is concerned about her weakness, SW also advised she will need to work with therapy to qualify for SNF. Pt then refused to go to a nursing facility and stated she would rather stick forks in her brain. She voiced nursing facilities are awful places and have no staff. SW let her know it would be short term for therapy. Pt again refused SNF. SW did let pt know that home health is all set up and they will come in a few times of the week and do therapy. SW let her know they will not be in daily. Pt voiced understanding and stated she went through this with her mom and is aware what does. Several times during conversation pt stated she just wants to build her strength back up, and several times refused nursing facility for rehab. Pt voiced she wants to be able to do dishes and make coffee without worrying about being short of breath. KAREN expressed to pt the importance of working with therapy when they come in later to see her. Pt voiced understanding. SW let pt know doctor will be in to see her. Pt voiced sh
--- NOTE | 2023-05-27 13:55 | CM.NOTE ---
Rounds made with Dr. Cooper, discussed with pt about discharge to home tomorrow. Pt does have home oxygen and will discharge with services. Dr. Cooper did discuss the need for skilled therapy at discharge for strengthening, pt continues to refuse. Pt states I would rather on the streets.
--- NOTE | 2023-05-27 15:16 | CM.NOTE ---
2nd Notice of Important Message From Medicare discussed with pt, pt denies questions or concerns.
[2023-05-27] MEDS: IPRATROPIUM/ALBUTEROL SULFATE 3 ML AMPUL.NEB IH (16:25)
[2023-05-27] MEDS: ALPRAZOLAM 1 MG TABLET 0.5 MG PO (16:40)
--- NOTE | 2023-05-27 19:51 | RESP.RT ---
Pt refused breathing tx. Pt stated they make her feel more SOB of afterwards and does not want to take them.
[2023-05-28] VITALS (11 sets, daily range): BP systolic 126; BP diastolic 73; PULSE 82–103; RESP 10–18; TEMP 36.6; O2SAT 93–98
[2023-05-28] MEDS: IPRATROPIUM/ALBUTEROL SULFATE 3 ML AMPUL.NEB IH (03:52)
[2023-05-28 05:21] LABS: Hematocrit 43.4 % (36.0-48.0); Hemoglobin 13.4 g/dL (12.0-16.0); Mean Corpuscular HGB Conc 30.9 g/dL (29.9-35.2); Mean Corpuscular Hemoglobin 28.5 pg (26.7-34.0); Mean Corpuscular Volume 92.1 fL (81.0-99.0); Mean Platelet Volume 10.3 fL (9.5-13.5); Platelet Count 372 10^3/uL (150-450); Red Blood Count 4.71 10^6/uL (4.20-5.40); Red Cell Distribution Width 14.3 % (11.0-15.0); White Blood Count 15.2 10^3/uL (4.0-11.0)
[2023-05-28] MEDS: METHYLPREDNISOLONE SOD SUCC PF 125 MG/2 ML VIAL 60 MG IVP ×2 (05:26→11:54)
[2023-05-28 05:29] LABS: Anion Gap 4.1; BUN Creatinine Ratio 47.1; Calcium 8.9 mg/dL (8.5-10.1); Carbon Dioxide 41.7 mmol/L (21.0-32.0); Chloride 101 mmol/L (98-107); Estimated GFR (African America >60 (>=60); Estimated GFR (Non-African Ame >60 (>=60); Glucose 122 mg/dL (74-106); Potassium 4.8 mmol/L (3.5-5.1); Sodium 142 mmol/L (136-145)
[2023-05-28 05:51] LABS: Atypical Lymphocytes Abs Man 1.06; Monocytes Absolute Manual 1.06 10^3/uL (0.30-0.80); Segmented Neut Absolute Manual 12.46 10^3/uL (1.4-6.5)
[2023-05-28] MEDS: SERTRALINE HCL 50 MG TABLET 25 MG PO (08:52)
[2023-05-28] MEDS: ACETAMINOPHEN 325 MG TABLET 650 MG PO (08:52)
[2023-05-28] MEDS: CETIRIZINE HCL 10 MG TABLET PO (08:52)
[2023-05-28] MEDS: CARVEDILOL 3.125 MG TABLET PO (08:53)
--- NOTE | 2023-05-28 09:12 | PM.DS1 ---
DS: Providers Provider Date of admission: 05/21/23 01:06 Primary care physician: Wilma Cuevas NP Admitting clinician: Joi Cooper Consults: 05/21/23 Occupational Therapy Eval and Treat Routine Reason for consultation: weakness Physical Therapy Eval and Treat Routine Reason for consultation: weakness 05/22/23 12:12 Consult to Case Management Routine Reason for consultation: home health services Has provider been notified: No Attending physician on discharge: Joi Cooper Discharging clinician: Joi Cooper DS: Diagnosis Discharge Diagnosis (1) Acute exacerbation of chronic obstructive pulmonary disease (COPD): (2) Acute hypoxemic respiratory failure: (3) UTI (urinary tract infection): Qualifiers: Hematuria presence: without hematuria Urinary tract infection type: acute cystitis Qualified Code(s): N30.00 - Acute cystitis without hematuria (4) Anxiety: (5) Elevated blood pressure reading: DS: Summary Hospital Course Hospital Course: 68 y/o female with a history of COPD to ER with increased SOB. C/o symptoms for several days and getting worse. Increased SOB with minimal exertion. Chest tight and hard to take deep breath. Frequent dry cough. Afebrile. No LE edema. Developed worsening breathing and called EMS. On arrival noted to be in respiratory distress and placed on BiPAP. BS diminished and given steroids and breathing treatments. Respiratory panel negative. ABG with increased pCO2 and chest x-ray negative. Admitted for treatment. Started antibiotics, steroids, and breathing treatments. On home oxygen therapy 3L NC continuous. Has been over a year since she has seen a physician, never leaves her apartment. Continue scheduled nebulizers, IV Solu-Medrol. Oxygen therapy as needed, BIPAP; pulmicort . She is at her baseline. Will be discharged home on Trelegy daily and albuterol inhaler to use as rescue. She will also complete prednisone 20mg daily x 7 days. She was given appointment with pcp. Home oxygen has been set up, Home health/PT and passport services. She does not wish to go to rehab. She wants to go home. Treated with 5 day course of levaquin completed in the hospital, no further antibiotics. For anxiety, she will continue zoloft 25mg daily and PRN Vistaril. She will discuss further needs with her pcp. Patient's blood pressure also up while she was here, she is to continue coreg 3.125mg bid. Close follow up with pcp. She would also benefit from pulmonary doctor. With long history of non-compliance i'm uncertain if she would go. She is to return to the hospital with any worsening symptoms. Follow up closely with pcp. patient would benefit from a wheelchair as she has limited mobility that impairs her ability to participate in mobility related services such as leaving the house, going to appointments, walking more than 10 feet with her walker. Due to her end-stage chronic obstructive pulmonary disease she is extremely fragile and gets short of breath even small distances. I feel the patient's functional mobility deficit would be sufficiently resolved by the use of a wheelchair. Status at Discharge Functional status at discharge: uses cane/walker Overall status at discharge: patient is back to baseline Time Spent with Patient Time attestation: Total time spent providing and/or coordinating discharge services: Time spent: greater than 30 minutes Exam Narrative Exam Narrative: General: Patient is alert, and oriented to person, place and time Skin: no visible rashes, or ulcers Head: atraumatic, acephalic Eyes: PERRLA, no nystagmus present, conjunctiva clear, no scleral icterus Ears: normal gross auditory acuity Heart: Normal rate and rhythm, no murmurs/rubs/gallops Lungs: audible wheezes, no crackles and diminished but improving breath sounds all lung ann Abdomen: Normal audible bowel sounds, no distension, No palpable masses, no organomegaly, no rebound/guarding/ or rigidity Musculoskeletal: no swelling bilateral lower extremities Constitutional Vital Signs, click to edit/add: Last Vital Signs Temp 97.8 F 05/28/23 04:49 Pulse 103 H 05/28/23 08:11 Resp 14 05/28/23 08:00 BP 126/73 05/28/23 04:49 Pulse Ox 98 05/28/23 04:49 O2 Del Method Nasal Cannula 05/28/23 04:49 O2 Flow Rate 3 05/28/23 04:49 FiO2 35 05/25/23 15:55 DS: Data Data Completed and Pending Labs on day of discharge: Labs from last 24 hours 05/28/23 04:59 WBC 15.2 H RBC 4.71 Hgb 13.4 Hct 43.4 MCV 92.1 MCH 28.5 MCHC 30.9 RDW 14.3 Plt Count 372 MPV 10.3 Seg Neuts % (Manual) 82.0 Lymphocytes % (Manual) 4.0 L Atypical Lymphs % (Man) 7.0 Monocytes % (Manual) 7.0 Eosinophils % (Manual) 0.0 L Basophils % (Manual) 0.0 L Neutrophils # (Manual) 12.46 H Lymphocytes # (Manual) 0.60 L Abs Atypical Lymphs Man 1.06 Monocytes # (Manual) 1.06 H Eosinophils # (Manual) 0.00 Basophils # (Manual) 0.00 Sodium 142 Potassium 4.8 Chloride 101 Carbon Dioxide 41.7 H Anion Gap 4.1 BUN 32.0 H Creatinine 0.68 Est GFR ( Amer) >60 Est GFR (Non-Af Amer) >60 BUN/Creatinine Ratio 47.1 Glucose 122 H Calcium 8.9 Discharge Plan Discharge Disposition: Home, Self-Care Condition: Serious Discharge Medications: New carvedilol 3.125 mg Tablet 3.125 mg PO BID 30 Days Qty: 60 0RF albuterol sulfate 90 mcg/actuation Hfa Aerosol Inhaler 2 puff inhalation Q4H PRN (Reason: Shortness Of Breath) 30 Days Qty: 1 0RF sertraline 50 mg Tablet 25 mg PO QD 30 Days Qty: 30 0RF hydroxyzine pamoate 25 mg Capsule 25 mg PO TID PRN (Reason: Agitation) 30 Days Qty: 90 0RF prednisone 20 mg tablet 20 mg PO DAILY 7 Days Qty: 7 0RF Trelegy Ellipta 100-62.5-25 mcg blister with device 1 inh inhalation DAILY 30 Days Qty: 28 0RF Activity: ambulate only with your walker, increase activity as tolerated and wear oxygen at all times Diet: advance to your usual diet Patient Instructions: Epinephrine (By breathing) (Primatene Mist, Adrenalin), COPD (Chronic Obstructive Pulmonary Disease) (ED), COPD (Chronic Obstructive Pulmonary Disease) (GEN) Detective And Intelligence Analyst/Senior Visual Designer Instructions: Discharge with [facility], they will call within 48 hours of discharge, phone number is [phone] Forms: Portal Instructions Follow Up Appointments: Jun.02 @ 10am with Wilma Cuevas, TECHNICAL SPECIALIST [employer] [phone]
--- NOTE | 2023-05-28 11:56 | CM.NOTE ---
Rounds made with Dr. Cooper. Plan for discharge to home today. April verbalizes understanding.
--- NOTE | 2023-05-28 13:53 | SWNOTE1 ---
KAREN faxed over CRF, dc med list, progress note from 05/27/23, and dc summary too [facility]. SW did set up trips for 3:00 for transport. SW notified nursing and pt. Pt is going home with [facility].
--- NOTE | 2023-05-28 13:58 | SWNOTE1 ---
Pt also voiced need for a wheelchair. Doctor has documented and signed script. SW sent information to [facility]. KAREN let pt know [facility] will reach out if it gets approved through her medicare.
[2023-05-28] MEDS: CYANOCOBALAMIN 1,000 MCG/ML VIAL 1000 MCG IM (14:32)
--- NOTE | 2023-06-07 15:51 | CM.DCFOLLOWU ---
1st attempt discharge follow up call made on 06/07/23, no answer
== END 2023-05-28 15:02 | disposition home or self-care (01) | DRG 190 ==
LOC: ER 21:09 → ICU 05-21 01:07 → MS 05-25 11:30
PROVIDERS: Family Medicine; Registered Nurse; Admitting Provider Family Medicine; Emergency Provider Student in an Organized Health Care Education/Training Program; PCP Nurse Practitioner; Visit Provider Family Medicine
DX: J44.1 Chronic obstructive pulmonary disease with (acute) exacerbation (principal); J96.21 Acute and chronic respiratory failure with hypoxia; J96.22 Acute and chronic respiratory failure with hypercapnia; N30.00 Acute cystitis without hematuria; Z66 Do not resuscitate; B96.20 Unspecified Escherichia coli [E. coli] as the cause of diseases classified elsewhere; F41.9 Anxiety disorder, unspecified; R03.0 Elevated blood-pressure reading, without diagnosis of hypertension; Z88.0 Allergy status to penicillin; Z87.891 Personal history of nicotine dependence; Z99.81 Dependence on supplemental oxygen
CPT/HCPCS: 0202U; 36415; 36600; 71045; 71275; 80048; 80053; 81001; 82800; 82805; 83605; 83880; 84484; 85007; 85025; 85027; 85610; 85730; 87040; 87086; 87150; 87186; 93005; 94640; 94660; 94761; 94799; 96365; 96366; 96367; 96372; 96375; 96376; 97110; 97161; 97530; 99285; 99406; J0360; J1650; J2060; J2930; J3420; J3475; Q0177; Q9967

== ENCOUNTER 2024-08-12 08:46 | Emergency (ER) | payer MEDICARE, MEDICAID, SELFPAY ==
[2024-08-12] VITALS (48 sets, daily range): BP systolic 145–199; BP diastolic 66–111; PULSE 90–132; RESP 20; TEMP 36.4–36.8; O2SAT 88–100; BMI 21.6
--- NOTE | 2024-08-12 08:36 | ECG_ITS ---
[facility] Test Date: 2024-08-12 Pat Name: LANDY GODFREY Department: Room: - Gender: Female Security Coordinator: : 1955 Requested By: 1854 Order Number: [id number] Reading MD: ANNIE JONES M.D. Measurements Intervals [place] Rate: 127 P: 103 [place]: 194 QRS: 79 QRSD: 96 T: 219 QT: 330 QTc: 405 Interpretive Statements 1120 Sinus tachycardia [address] depression, possible subendocardial injury 4664 Twave abnormality, possible inferior ischemia 0102 ARTIFACT PRESENT 9150 abnormal ECG Compared to ECG 05/20/2023 20:27:36 No significant changes Electronically Signed On 08-12-2024 14:41:17 EDT by ANNIE JONES M.D.
[2024-08-12] MEDS: METHYLPREDNISOLONE SOD SUCC PF 125 MG/2 ML VIAL IVP (08:44)
--- NOTE | 2024-08-12 08:44 | ECG_ITS ---
[facility] Test Date: 2024-08-12 Pat Name: LANDY GODFREY Department: Room: - Gender: Female Slot Technician: : 1955 Requested By: 1854 Order Number: [id number] Reading MD: ANNIE JONES M.D. Measurements Intervals [place] Rate: 128 P: 194 [place]: 192 QRS: 74 QRSD: 90 T: 270 QT: 328 QTc: 404 Interpretive Statements Sinus tachycardia [address] depression 4664 Twave abnormality, possible inferior ischemia 0102 ARTIFACT PRESENT 9150 abnormal ECG Compared to ECG 08/12/2024 08:39:56 No significant changes Electronically Signed On 08-14-2024 21:35:42 EDT by ANNIE JONES M.D.
[2024-08-12 08:49] LABS: Glucometer 166 mg/dL (74-106)
--- OUTSIDE RECORDS SUMMARY | 2024-08-12 08:52 | XMS_ITS | CCD ---
Author Organization [facility] Care Team Providers Care Senior Mechanical Development Engineer Name Role Phone SHARON, GIO R Unavailable Unavailable SHARON, GIO R Unavailable Unavailable SHARON, GIO R Unavailable Unavailable SHARON, GIO R Unavailable Unavailable SHARON, GIO R Unavailable Unavailable SHARON, GIO R Unavailable Unavailable SHARON, GIO R Unavailable Unavailable Allergies Allergy Classification Reported Allergen(s) Allergy Type Date of Onset Reaction(s) Facility (1 source) Penicillins Drug allergy (disorder) 10-09-2012 [facility] Repository Problems Problem Classification Problem Date Documented Da te Episodic/Chronic Chronic obstructive pulmonary disease and bronchiectasis (4 sources) Chronic obstructive pulmonary disease, unspecified; Translations: [COPD UNSPECIFIED] Onset: 03-23-2018 Chronic Encounters Encounter Date Encounter Type Care Provider Facility Start: 03-23-2018 End: 03-24-2018 Patient encounter procedure GIO R SHARON Facility:[facility] Start: 12-07-2017 Patient encounter procedure GIO Mckeon B OVA Facility:[facility] Start: 12-01-2017 End: 12-02-2017 Patient encounter procedure GIO R SHARON Facility:[facility] Payers Date Payer Category Payer Self-pay [id number] 1960 Unknown [id number] 1955 Unknown [id number] 1955 Unknown [id number] 1955 Unknown [id number] Summary Purpose Family History No Family History Records Found Advance Directives No Advanced Directives Records Found Additional Source Comments INFORMATION SOURCE (unrecogn ized section and content) DATE CREATED AUTHOR 04/04/2018 [facility] FOR RECORDS PERTAINING TO PATIENTS WHO ARE OR HAVE BEEN ENROLLED IN A CHEMICAL DEPENDENCY/SUBSTANCEABUSE PROGRAM, SOME INFORMATION MAY BE OMITTED. This clinical summary was aggregated from multiple sources. Caution should be exercised in using it in the provision of clinical care. This summary normalizes information from multiple sources, and as a consequence, information in this document may materially change the coding, format and clinical context of patient data. In addition, data may be omitted in some cases. CLINICAL DECISIONS SHOULD BE BASED ON THE PRIMARY CLINICAL RECORDS. [facility], [facility]. provides no warranty or guarantee of the accuracy or completeness of information in this document.
[2024-08-12 08:53] LABS: Allen Test POSITIVE (POSITIVE); BIPAP Pressure 16/8; Fractionated Inspired Oxygen 45 %; O2 Mode BIPAP; Oxygen Saturation ABG 67.2 %; Puncture Site RR; Rate 16
[2024-08-12 08:55] LABS: ABG PCO2 >98.3 mmHg (35.0-45.0); PO2 ABG 45.5 mmHg (80.0-100.0); pH ABG 7.155 (7.350-7.450)
[2024-08-12] MEDS: 0.9 % SODIUM CHLORIDE 1,000 ML 500 ML IV (08:56)
[2024-08-12] MEDS: MAGNESIUM SULFATE IN WATER 2 GM/50 ML PREMIX IV (08:56)
[2024-08-12 09:13] LABS: Basophils Percent Auto 0.2 % (0.2-2.0); Eosinophils Percent Auto 0.1 % (0.9-7.0); Hematocrit 41.6 % (36.0-48.0); Hemoglobin 13.3 g/dL (12.0-16.0); Immature Granulocytes Abs Auto 0.04 10^3/uL (0.00-0.03); Immature Granulocytes Pct Auto 0.4 % (0.0-0.5); Lymphocytes Absolute Auto 1.5 10^3/uL (1.2-3.8); Lymphocytes Percent Auto 14.7 % (20.5-60.0); Mean Corpuscular Hemoglobin 29.9 pg (26.7-34.0); Mean Corpuscular Volume 93.5 fL (81.0-99.0); Mean Platelet Volume 10.9 fL (9.5-13.5); Monocytes Absolute Auto 0.4 10^3/uL (0.3-0.8); Monocytes Percent Auto 4.3 % (1.7-12.0); Neutrophils Percent Auto 80.3 % (43.0-75.0); Platelet Count 304 10^3/uL (150-450); Red Blood Count 4.45 10^6/uL (4.20-5.40); Red Cell Distribution Width 14.1 % (11.0-15.0)
[2024-08-12] MEDS: IPRATROPIUM/ALBUTEROL SULFATE 3 ML AMPUL.NEB IH ×2 (09:27→09:28)
[2024-08-12 09:29] LABS: Alanine Aminotransferase 30 U/L (14-59); Albumin Globulin Ratio 0.9; Albumin Level 3.7 g/dL (3.4-5.0); Alkaline Phosphatase 67 U/L (46-116); Anion Gap 13.1; Aspartate Amino Transferase 51 U/L (15-37); BUN Creatinine Ratio 16.9; Bilirubin Total 0.3 mg/dL (0.2-1.0); Calcium 9.4 mg/dL (8.5-10.1); Carbon Dioxide 33.4 mmol/L (21.0-32.0); Chloride 99 mmol/L (98-107); Estimated GFR (African America >60 (>=60 mL/min/1.73m^2); Estimated GFR (Non-African Ame >60 (>=60 mL/min/1.73m^2); Glucose 182 mg/dL (74-106); Potassium 4.5 mmol/L (3.5-5.1); Sodium 141 mmol/L (136-145); Total Protein 7.7 g/dL (6.4-8.2)
[2024-08-12 09:32] LABS: Lactate/Lactic Acid 1.9 mmol/L (0.4-2.0)
[2024-08-12 09:35] LABS: Troponin I High Sensitivity 173.7 pg/mL (4.0-51.3)
--- NOTE | 2024-08-12 09:40 | PC.NURSE ---
Patient came in by squad from home. Patient called EMS but door had to be unlocked for them to enter. patient was found SOB and diminished LOC saturation at 84 %. In route squad gave duo neb treatment and a second albuterol treatment. IV attempt was unsuccessful. Patient was fighting them with attempt to do any treatment. Upon arrival here patient was in tripod position rate of 30 and pulse ox of 90% with breathing treatment. Patient was soiled with urine. Patient was grabbing at staff and had to have soft restraints applied to upper limbs for her safety. Iv solumedrol and magnesium was given as ordered and patient was placed on bi-pap. Smith was inserted after patient was given bed bath. No visible sores noted. Lag draws were made and urine sample was sent to lab. Patient is now resting in bed alert and talking but is still fighting about leaving the mask on.
[2024-08-12] MEDS: LEVOFLOXACIN IN DEXTROSE 5 % 750 MG/150 ML PREMIX 100 MG IV (10:13)
[2024-08-12 11:04] LABS: HCO3 ABG 37.2 mmol/L (22.0-26.0)
[2024-08-12 11:05] LABS: Allen Test POSITIVE (POSITIVE); BIPAP Pressure 18/8; Base Excess ABG 10.5 mmol/L (-2.0-2.0); Fractionated Inspired Oxygen 45 %; O2 Mode BIPAP; Oxygen Saturation ABG 99.4 %; Puncture Site LR; Rate 20
[2024-08-12 11:06] LABS: ABG PCO2 78.6 mmHg (35.0-45.0); pH ABG 7.283 (7.350-7.450)
[2024-08-12 11:22] LABS: Troponin I High Sensitivity 229.7 pg/mL (4.0-51.3)
--- NOTE | 2024-08-12 11:23 | ED_ITS ---
HPI - SOB/Dyspnea General Chief Complaint: Shortness of Breath/Dyspnea Stated Complaint: SHORTNESS OF BREATH Time Seen by Provider: 08/12/24 09:09 Source: patient Mode of arrival: ambulance Limitations: no limitations History of Present Illness HPI Narrative: The patient is a 69 years old female with history of COPD is brought to us by the EMS after she called ambulance for shortness of breath, by the time they a rrived they found her in a tripod position and pulse ox was 85%, provided with a breathing treatment she went up to 97% and she still was in distress leaning forward using accessory muscles on arrival to us Upon arrival the patient was not able to provide any history due to shortness of breath speaking in one-word sentences. The patient was placed on the BiPAP on arrival Related Data Previous Rx's ?Medication ?Instructions ?Recorded albuterol sulfate 90 mcg/actuation 2 puff inhalation Q4H PRN 05/28/23 aerosol inhaler Shortness Of Breath 30 days #1 g carvedilol 3.125 mg tablet 3.125 mg PO BID 30 days #60 tabs 05/28/23 fluticasone fur. 100 mcg-umeclid 1 inh inhalation DAILY 30 days #28 05/28/23 62.5 mcg-vilant 25 mcg ea inhalat.powder (Trelegy Ellipta) sertraline 50 mg tablet 25 mg (1/2 x 50 mg) PO QD 30 days 05/28/23 #30 tabs Allergies Allergy/AdvReac Type Severity Reaction Status Date / Time Penicillins Allergy Unknown Verified 05/20/23 20:28 Review of Systems ROS Status of ROS 10 or more systems reviewed and unremark able except as noted in history and below [facility] Medical History (Updated 08/12/24 @ 12:02 by Nandini Kurtz MD) Elevated blood pressure reading ?R03.0 - Elevated blood-pressure reading, without diagnosis of hypertension (ICD-10) Anxiety ?F41.9 - Anxiety disorder, unspecified (ICD-10) COPD (chronic obstructive pulmonary disease) ?J44.9 - Chronic obstructive pulmonary disease, unspecified (ICD-10) Social History Smoking status: Former smoker Highest level of school completed/degree received: high school graduate Little interest or pleasure in doing things: not at all Feeling down, depressed, or hopeless: not at all Exam Narrative Exam Narrative: Nurses notes and vital signs reviewed and patient is not hypoxic. General: Patient in obvious respiratory distress disheveled Skin: Warm, dry, no pallor noted. No rash. Head: Normocephalic, atraumatic. Neck: Supple, non-tender. Cardiovascular: Regular Rate and Rhythm without murmur, gallop or rub. Respiratory: Patient using accessory muscles leaning forward in distress Lungs distant breathing sound bilaterally with wheezing obviously on exam that is expiratory Back: No midline thoracic or lumbar vertebral tenderness. No CVA tenderness Musculoskeletal: normal ROM, no calf or popliteal tenderness, no lower extremity edema/swelling GI: Abdomen is soft, non-distended. Normal bowel sounds. No masses appreciated. No tenderness to palpation. No rebound, guarding, or rigidity noted. Neurological: A&O x4. No cranial nerve dysfunction observed. Constitutional Vital Signs, click to edit/add: Last Vital Signs Temp 97.6 F 08/12/24 09:33 Pulse 96 H 08/12/24 11:10 Resp 25 H 08/12/24 11:10 BP 147/66 H 08/12/24 11:01 Pulse Ox 100 08/12/24 11:01 O2 Del Method BIPAP 08/12/24 10:05 O2 Flow Rate 4 08/12/24 08:36 FiO2 45 08/12/24 09:29 Course Vital Signs Vital signs: Vital Signs Pulse Rate 122 H 08/12/24 08:36 Respiratory Rate 30 H 08/12/24 08:36 Blood Pressure 186/91 H 08/12/24 08:36 Pulse Oximetry 90 L 08/12/24 08:36 Oxygen Delivery Method Nasal Cannula 08/12/24 08:36 Oxygen Delivery Flow Rate 4 08/12/24 08:36 Temperature 97.6 F 08/12/24 09:33 Pulse Rate 96 H 08/12/24 11:10 Respiratory Rate 25 H 08/12/24 11:10 Blood Pressure 147/66 H 08/12/24 11:01 Pulse Oximetry 100 08/12/24 11:01 Oxygen Delivery Method BIPAP 08/12/24 10:05 Oxygen Delivery Flow Rate 4 08/12/24 08:36 Fraction of Inspired Oxygen 45 08/12/24 09:29 MDM - SOB/Dyspnea MDM Narrative Medical decision making narrative: The patient EKG upon arrival showing sinus tachycardia with a heart rate of [address] elevation or depression the is obvious with the patient have multiple artifact due to movement and respiratory distress The patient chest x-ray shows possible pneumonia in the right lung The patient CBC showed no leukocytosis chemistry showing some elevated bicarb The patient troponin initially was 178 repeated 1 was 2 2:20 hours The patient initial ABG shows a pH of 7.15 pCO2 was more than 90 and PO2 with 45 and after repeating that the patient had within an hour of the BiPAP improvement to 7.28 pH as well as PCO2 of 70s and the pO2's was 145 The patient have a paperwork with her that is signed for DNR status I did speak with the patient and she did explain that she does not want to be on the machine to breathe because that remind her mother because apparently that what happened to her before she The patient mentioned that she does not want to be intubated and she confirmed her DNR CCA status The patient was provided with aspirin for her troponin elevation which is mostly secondary to non-STEMI from the fact that she had hypoxemia Patient was accepted by in [facility] Lab Data Labs: Lab Results 08/12/24 08/12/24 08/12/24 Range/Units 08:47 08:50 08:55 WBC 10.0 (4.0-11.0) 10^3/uL RBC 4.45 (4.20-5.40) 10^6/uL Hgb 13.3 (12.0-16.0) g/dL Hct 41.6 (36.0-48.0) % MCV 93.5 (81.0-99.0) fL MCH 29.9 (26.7-34.0) pg MCHC 32.0 (29.9-35.2) g/dL RDW 14.1 (11.0-15.0) % Plt Count 304 (150-450) 10^3/uL MPV 10.9 (9.5-13.5) fL Neut % (Auto) 80.3 H (43.0-75.0) % Lymph % (Auto) 14.7 L (20.5-60.0) % Hayes % (Auto) 4.3 (1.7-12.0) % Eos % (Auto) 0.1 L (0.9-7.0) % Baso % (Auto) 0.2 (0.2-2.0) % Neut # (Auto) 8.0 H (1.4-6.5) 10^3/uL Lymph # (Auto) 1.5 (1.2-3.8) 10^3/uL Hayes # (Auto) 0.4 (0.3-0.8) 10^3/uL Eos # (Auto) 0.0 (0.0-0.7) 10^3/uL Baso # (Auto) 0.0 (0.0-0.1) 10^3/uL Abs Immat Gran (auto) 0.04 H (0.00-0.03) 10^3/uL Imm/Tot Granulo (auto) 0.4 (0.0-0.5) % Puncture Site Rr ABG pH 7.155 L* (7.350-7.450) ABG pCO2 >98.3 H* (35.0-45.0) mmHg ABG pO2 45.5 L* (80.0-100.0) mmHg ABG HCO3 (22.0-26.0) mmol/L ABG O2 Saturation 67.2 % ABG Base Excess (-2.0-2.0) mmol/L Royal Test Positive (POSITIVE) FiO2 45 % BiPAP 16/8 Sodium 141 (136-145) mmol/L Potassium 4.5 (3.5-5.1) mmol/L Chloride 99 (98-107) mmol/L Carbon Dioxide 33.4 H (21.0-32.0) mmol/L Anion Gap 13.1 BUN 13.0 (7.0-18.0) mg/dL Creatinine 0.77 (0.55-1.02) mg/dL Est GFR ( Amer) >60 (>=60 mL/min/1.73m^2) Est GFR (Non-Af Amer) >60 (>=60 mL/min/1.73m^2) BUN/Creatinine Ratio 16.9 Glucose 182 H (74-106) mg/dL Lactate (0.4-2.0) mmol/L Calcium 9.4 (8.5-10.1) mg/dL Total Bilirubin 0.3 (0.2-1.0) mg/dL AST 51 H (15-37) U/L ALT 30 (14-59) U/L Alkaline Phosphatase 67 (46-116) U/L Troponin I High Sens 173.7 H* (4.0-51.3) pg/mL Total Protein 7.7 (6.4-8.2) g/dL Albumin 3.7 (3.4-5.0) g/dL Globulin 4.0 g/dL Albumin/Globulin Ratio 0.9 POC Glucose 166 H (74-106) mg/dL 08/12/24 08/12/24 08/12/24 Range/Units 09:07 10:53 10:58 WBC (4.0-11.0) 10^3/uL RBC (4.20-5.40) 10^6/uL Hgb (12.0-16.0) g/dL Hct (36.0-48.0) % MCV (81.0-99.0) fL MCH (26.7-34.0) pg MCHC (29.9-35.2) g/dL RDW (11.0-15.0) % Plt Count (150-450) 10^3/uL MPV (9.5-13.5) fL Neut % (Auto) (43.0-75.0) % Lymph % (Auto) (20.5-60.0) % Hayes % (Auto) (1.7-12.0) % Eos % (Auto) (0.9-7.0) % Baso % (Auto) (0.2-2.0) % Neut # (Auto) (1.4-6.5) 10^3/uL Lymph # (Auto) (1.2-3.8) 10^3/uL Hayes # (Auto) (0.3-0.8) 10^3/uL Eos # (Auto) (0.0-0.7) 10^3/uL Baso # (Auto) (0.0-0.1) 10^3/uL Abs Immat Gran (auto) (0.00-0.03) 10^3/uL Imm/Tot Granulo (auto) (0.0-0.5) % Puncture Site Lr ABG pH 7.283 L* (7.350-7.450) ABG pCO2 78.6 H* (35.0-45.0) mmHg ABG pO2 148.0 H (80.0-100.0) mmHg ABG HCO3 37.2 H (22.0-26.0) mmol/L ABG O2 Saturation 99.4 % ABG Base Excess 10.5 H (-2.0-2.0) mmol/L Royal Test Positive (POSITIVE) FiO2 45 % BiPAP 18/8 Sodium (136-145) mmol/L Potassium (3.5-5.1) mmol/L Chloride (98-107) mmol/L Carbon Dioxide (21.0-32.0) mmol/L Anion Gap BUN (7.0-18.0) mg/dL Creatinine (0.55-1.02) mg/dL Est GFR ( Amer) (>=60 mL/min/1.73m^2) Est GFR (Non-Af Amer) (>=60 mL/min/1.73m^2) BUN/Creatinine Ratio Glucose (74-106) mg/dL Lactate 1.9 (0.4-2.0) mmol/L Calcium (8.5-10.1) mg/dL Total Bilirubin (0.2-1.0) mg/dL AST (15-37) U/L ALT (14-59) U/L Alkaline Phosphatase (46-116) U/L Troponin I High Sens 229.7 H* (4.0-51.3) pg/mL Total Protein (6.4-8.2) g/dL Albumin (3.4-5.0) g/dL Globulin g/dL Albumin/Globulin Ratio POC Glucose (74-106) mg/dL Discharge Plan Discharge Chief Complaint: Shortness of Breath/Dyspnea Clinical Impression: Respiratory failure, Asthma exacerbation in COPD, Pneumonia, Elevated troponin Patient Disposition: [facility] Time of Disposition Decision: 12:02
[2024-08-12] MEDS: ASPIRIN 300 MG SUPP.RECT PR (13:02)
== END 2024-08-12 14:15 | disposition short-term general hospital (02) ==
PROVIDERS: Emergency Provider Emergency Medicine; PCP Nurse Practitioner
DX: J96.91 Respiratory failure, unspecified with hypoxia (principal); J44.0 Chronic obstructive pulmonary disease with (acute) lower respiratory infection; J44.1 Chronic obstructive pulmonary disease with (acute) exacerbation; J18.9 Pneumonia, unspecified organism; Z87.891 Personal history of nicotine dependence; Z66 Do not resuscitate; R79.89 Other specified abnormal findings of blood chemistry
CPT/HCPCS: 36415; 36600; 51702; 71045; 80053; 82805; 83605; 84484; 85025; 87040; 93005; 94640; 94660; 96365; 96366; 96367; 96368; 96375; 99285; J2919; J3475